=== PATIENT | female | born 1975 | race Caucasian/White ===

== ENCOUNTER 2022-06-24 09:49 | Observation (INO) ==
--- NOTE | 2022-06-24 10:33 | CT Scan Report ---
CT head/brain wo con CLINICAL HISTORY: 46 years-old Female with Stroke Alert. Acute strokelike symptoms TECHNIQUE: Multiple axial CT images of the head were obtained without contrast. A dose lowering tech nique was utilized adhering to the principles of ALARA. CT DOSE: 537.48 mGy.cm COMPARISON: None. FINDINGS: No acute intracranial hemorrhage, midline shift, intracranial mass, hydrocephalus, territorial ischem ia or abnormal extra-axial collection. Encephalomalacia is noted within the right frontal lobe on sienna ge 14 series 2 measuring 2.7 cm. The calvarium is intact. The paranasal sinuses, mastoid air cells, and middle ear cavities are clear . IMPRESSION: 1. No acute intracranial abnormality identified. 2. Encephalomalacia of the right frontal lobe. ACT 112: Negative or not required by law. The above report was generated using voice recognition software. It may contain grammatical, syntax o r spelling errors. Electronically signed by: eH Carranza M.D. 06/24/2022 10:30 AM
[2022-06-24 10:36] LABS: Hematocrit (blood only) 40.1 % (34.1-44.9); Hemoglobin 13.4 g/dl (12.0-16.0); Mean Corpuscular Hemoglobin 32.1 pg (25.0-34.0); Mean Corpuscular Hgb Conc 33.4 g/dL (32.0-36.0); Mean Corpuscular Volume 96.2 fL (80.0-100.0); Mean Platelet Volume 8.9 fL (9.4-12.3); Platelet Count 367 K/uL (130-400); RDW Coefficient of Variation 13.7 % (11.5-14.5); RDW Standard Deviation 48.9 fL (36.4-46.3); Red Blood Count 4.17 M/uL (3.93-5.22); White Blood Count 8.66 K/ul (4.8-10.8)
[2022-06-24 10:49] LABS: INR 0.9 (0.9-1.1); Partial Thromboplastin Ratio 0.9; Partial Thromboplastin Time 24.8 Seconds (21.0-31.0); Prothrombin Time 10.1 Seconds (9.0-12.0)
--- NOTE | 2022-06-24 11:09 | Emergency Department Note ---
Impression & Plan Muscle weakness of right arm, History of cerebrovascular accident, Vertebral artery stenosis, Pulmonary nodule ED Provider Note NAME: MARGAUX WARNER AGE: 46 SEX: F : 1975 ARRIVES VIA: Walk-In INFORMANT: Patient, ED PROVIDER(S): Adan Garcia MD Chief Complaint: Right upper extremity weakness HPI: Patient presents due to concern for inability to move the right upper extremity. The patient states that she was last known well around 11 PM on Saturday. The patient states her arm was "hanging" yesterday but cannot move it today at all. The patient is also complained of decreased sensation of the right lower extremity. No recent falls or trauma. The patient has been incarcerated at [facility] for the last 30 days. The patient does have a history of methamphetamine use but does not use an approximate 6 days. Patient does have a history of Crohn's. The patient also relates that she has a prior history of TIA and stroke but has not been on medications due to inability to afford or obtain her medications although she has returned to some of them. During her previous bouts of TIA and stroke the patient did have some difficulty with writing and may be some generalized weakness but no focal deficits. Patient denies any slurred speech or facial droop. ROS: See HPI for pertinent positives and negatives. A total of 10 systems were reviewed and otherwise negative. Past medical history: See below Surgical history: See below Social history: See below Physical Exam: GENERAL: NAD, wearing a mask, non-toxic. Wearing glasses, left upper and left lower extremity in handcuffs. EYE EXAM: Normal conjunctiva. PERRL, no anisocoria and EOM's grossly intact w/o pain. NECK: Supple, no nuchal rigidity, no adenopathy, non-tender. No signs of meningismus. FROM of the neck with good chin to chest and neck extension. No stridor. LUNGS: Clear to auscultation. Normal chest wall mechanics. HEART: NSR, no MRG. ABDOMEN: Abdomen soft, non-tender, normo-active bowel sounds, no masses, no rebound or guarding. BACK: No CVA TTP. SKIN: No rashes and no bruising. UPPER EXTREMITIES: Upper extremities are grossly normal. LOWER EXTREMITIES: Grossly normal, no edema. NEURO EXAM: A&O x3, cranial nerves II-XII grossly intact, normal speech, inability to move right upper extremity, decreased sensation throughout right upper extremity distal to the shoulder, good radial pulse. Good strength in the left upper and bilateral lower extremities. Differential diagnoses: Infection, dehydration, metabolic abnormality, hypo/hyperglycemia, electrolyte disturbance, anemia, hypoxia, cardiac sources, intracerebral event, toxicologic, neurologic, as well as other pathologies. Course: Patient was seen and evaluated the bedside. Full history physical exam was performed. EKG interpreted by me Normal sinus rhythm, rate of 79, normal intervals, normal axis, T wave version in V2 and V3. No prior EKGs for comparison. Imaging Studies: See Below Cardiac monitoring: An order was placed for continuous cardiac monitoring. The monitor shows a rate of 72 with sinus rhythm. MDM: Patient presents due to concern for right upper extremity weakness. The patient is well outside of any TNKase window. The patient is prior history of TIA and CVA. The patient does not have any ability to move the right upper extremity. Initial CT head shows right-sided frontal encephalomalacia. CTA of the head and neck were ordered. The patient had blood work completed which shows a normal white count H&H and platelet count kidney function is unremarkable with normal coags. EKG with no signs of obvious ischemia but no priors for comparison. The patient does have T wave versions anteriorly. CTA of the head and neck shows left vertebral artery stenosis of 70%. I did speak the on-call hospitalist Dr. Gutiérrez and the patient was admitted to the medicine service. MRI of the brain was ordered. Past Med/Surg History Medical History (Updated 06/24/22 @ 16:53 by Adan Garcia MD) Cerebrovascular accident Crohn disease CVA (cerebral vascular accident) Factor V deficiency History of stroke TIA (transient ischemic attack) Tobacco abuse Surgical History No pertinent past surgical history Social History Smoking Status: Former smoker Hx Alcohol Use: No Hx Substance Use: Yes Non-Prescribed Medications: Methamphetamines Preferred Language: Liberian Feels Safe at Home: Yes Allergies Allergies Allergy/AdvReac Type Severity Reaction Status Date / Time No Known Allergies Allergy Verified 06/24/22 15:55 Home Meds Home Medications Medication Instructions Recorded Confirmed albuterol sulfate 2.5 mg/3 mL 2.5 mg inhalation TID PRN 06/24/22 06/24/22 (0.083 %) solution for nebulization Shortness Of Breath aspirin 81 mg tablet,delayed 81 mg PO DAILY 06/24/22 06/24/22 release klmxnua-dputxuqngykxk-eowbergk 250 1 tab PO DAILY PRN Migraine 06/24/22 06/24/22 mg-250 mg-65 mg tablet (Excedrin Headache Migraine) docusate sodium 100 mg capsule 100 mg PO BID 06/24/22 06/24/22 (Colace) fluoxetine 20 mg tablet 20 mg PO DAILY 06/24/22 06/24/22 hydroxyzine HCl 50 mg tablet 50 mg PO HS PRN RESTLESSNESS/SLEEP 06/24/22 06/24/22 Results & Data (ED) Vital Signs Vital Signs - 24 hr 06/24/22 09:52 06/24/22 09:55 06/24/22 09:55 Temperature 36.7 C Temperature Source Temporal Artery Scan Pulse Rate 99 H 105 H Pulse Rate [Apical] Pulse Rate from SpO2 Sensor Pulse Rhythm Regular Pulse Strength Normal Respiratory Rate 18 16 Respiratory Effort / Characteristics Non-Labored Spontaneous Respiratory Depth Normal Respiratory Pattern Regular Blood Pressure 128/80 Blood Pressure [Left Arm] Blood Pressure Mean 96 Blood Pressure Mean [Left Arm] Blood Pressure Position Sitting Pulse Oximetry 98 99 Oxygen Delivery Method Room Air Room Air Room Air Sepsis Recent Fever Within 48 Hours No Sepsis New/Unexplained Change in Mental Status No Sepsis Action Taken by Nursing No Action Required 06/24/22 09:50 06/24/22 11:08 06/24/22 11:08 Temperature Temperature Source Pulse Rate 81 Pulse Rate [Apical] 108 H Pulse Rate from SpO2 Sensor 82 Pulse Rhythm Pulse Strength Respiratory Rate 16 14 Respiratory Effort / Characteristics Respiratory Depth Respiratory Pattern Blood Pressure 108/84 Blood Pressure [Left Arm] 108/84 Blood Pressure Mean 92 Blood Pressure Mean [Left Arm] 92 Blood Pressure Position Pulse Oximetry 99 98 Oxygen Delivery Method Sepsis Recent Fever Within 48 Hours Sepsis New/Unexplained Change in Mental Status Sepsis Action Taken by Nursing 06/24/22 11:30 06/24/22 11:30 06/24/22 13:00 Temperature Temperature Source Pulse Rate 95 H Pulse Rate [Apical] 91 H Pulse Rate from SpO2 Sensor 100 H Pulse Rhythm Pulse Strength Respiratory Rate 20 18 Respiratory Effort / Characteristics Respiratory Depth Respiratory Pattern Blood Pressure 135/83 Blood Pressure [Left Arm] 117/80 Blood Pressure Mean 100 Blood Pressure Mean [Left Arm] 92 Blood Pressure Position Pulse Oximetry 98 98 Oxygen Delivery Method Sepsis Recent Fever Within 48 Hours Sepsis New/Unexplained Change in Mental Status Sepsis Action Taken by [facility] Medications Current Medication List: was personally reviewed by me Laboratory Data Attestation: I reviewed the patient's lab results. Result diagrams: 06/24/22 10:00 06/24/22 10:00 Lab Results 06/24/22 06/24/22 06/24/22 Range/Units 10:00 10:00 10:00 WBC 8.66 (4.8-10.8) K/ul RBC 4.17 (3.93-5.22) M/uL Hgb 13.4 (12.0-16.0) g/dl Hct 40.1 (34.1-44.9) % MCV 96.2 (80.0-100.0) fL MCH 32.1 (25.0-34.0) pg MCHC 33.4 (32.0-36.0) g/dL RDW Std Deviation 48.9 H (36.4-46.3) fL RDW Coeff of Noreen 13.7 (11.5-14.5) % Plt Count 367 (130-400) K/uL MPV 8.9 L (9.4-12.3) fL PT 10.1 (9.0-12.0) Seconds INR 0.9 (0.9-1.1) APTT 24.8 (21.0-31.0) Seconds PTT Ratio 0.9 Sodium 138 (136-145) mmol/L Potassium 4.2 (3.5-5.1) mmol/L Chloride 105 (98-107) mmol/L Carbon Dioxide 28 (21-32) mmol/L Anion Gap 5 (3-11) BUN 14 (6-23) mg/dl Creatinine 0.73 (0.6-1.2) mg/dl Est Cr Clr Drug Dosing 82.8 ml/min Est GFR ( Amer) 115.3 ml/min Est GFR (Non-Af Amer) 99.5 ml/min BUN/Creatinine Ratio 19.2 (10-20) Glucose 98 (70-99(Fasting)) mg/dl Calcium 9.2 (8.5-10.1) mg/dl Magnesium 1.9 (1.7-2.4) mg/dl Total Bilirubin 0.4 (0.2-1.0) mg/dl AST 37 (13-39) U/L ALT 36 (7-52) U/L Alkaline Phosphatase 94 (34-104) U/L Total Protein 6.8 (6.0-8.3) gm/dl Albumin 3.6 (3.4-5.0) gm/dl Globulin 3.2 (2.5-4.0) gm/dl Albumin/Globulin Ratio 1.1 (0.9-2) SARS-CoV-2, RNA, NAAT (NEGATIVE) 06/24/22 Range/Units 11:50 WBC (4.8-10.8) K/ul RBC (3.93-5.22) M/uL Hgb (12.0-16.0) g/dl Hct (34.1-44.9) % MCV (80.0-100.0) fL MCH (25.0-34.0) pg MCHC (32.0-36.0) g/dL RDW Std Deviation (36.4-46.3) fL RDW Coeff of Noreen (11.5-14.5) % Plt Count (130-400) K/uL MPV (9.4-12.3) fL PT (9.0-12.0) Seconds INR (0.9-1.1) APTT (21.0-31.0) Seconds PTT Ratio Sodium (136-145) mmol/L Potassium (3.5-5.1) mmol/L Chloride (98-107) mmol/L Carbon Dioxide (21-32) mmol/L Anion Gap (3-11) BUN (6-23) mg/dl Creatinine (0.6-1.2) mg/dl Est Cr Clr Drug Dosing ml/min Est GFR ( Amer) ml/min Est GFR (Non-Af Amer) ml/min BUN/Creatinine Ratio (10-20) Glucose (70-99(Fasting)) mg/dl Calcium (8.5-10.1) mg/dl Magnesium (1.7-2.4) mg/dl Total Bilirubin (0.2-1.0) mg/dl AST (13-39) U/L ALT (7-52) U/L Alkaline Phosphatase (34-104) U/L Total Protein (6.0-8.3) gm/dl Albumin (3.4-5.0) gm/dl Globulin (2.5-4.0) gm/dl Albumin/Globulin Ratio (0.9-2) SARS-CoV-2, RNA, NAAT NEGATIVE (NEGATIVE) Administered Medications Discontinued Medications Aspirin (Aspirin 325 Mg Ectab) 325 mg PO ONE ONE Stop: 06/24/22 15:31 Last Admin: 06/24/22 15:39 Dose: 325 mg Documented By: EDMUND Atorvastatin Calcium (Atorvastatin 40 Mg Tab) 40 mg PO ONE ONE Stop: 06/24/22 15:31 Last Admin: 06/24/22 15:39 Dose: 40 mg Documented By: EDMUND Sodium Chloride (Nss 1000ml) 1,000 mls @ 999 mls/hr IV .Q1H1M ONE Stop: 06/24/22 12:35 Last Infusion: 06/24/22 13:26 Dose: 0 mls/hr Documented By: Admin: 06/24/22 11:45 Dose: 999 mls/hr Documented By: EDMUND Ioversol (Optiray 300 500ml) 110 ml IV ONCE ONE Stop: 06/24/22 12:05 Last Admin: 06/24/22 12:04 Dose: 110 ml Documented By: JENNY Imaging Data Radiologist's Impression: Head CT 06/24/22 09:55 CT head/brain wo con CLINICAL HISTORY: 46 years-old Female with Stroke Alert. Acute strokelike symptoms TECHNIQUE: Multiple axial CT images of the head were obtained without contrast. A dose lowering technique was utilized adhering to the principles of ALARA. CT DOSE: 537.48 mGy.cm COMPARISON: None. FINDINGS: No acute intracranial hemorrhage, midline shift, intracranial mass, hydrocephalus, territorial ischemia or abnormal extra-axial collection. Encephalomalacia is noted within the right frontal lobe on image 14 series 2 measuring 2.7 cm. The calvarium is intact. The paranasal sinuses, mastoid air cells, and middle ear cavities are clear. IMPRESSION: 1. No acute intracranial abnormality identified. 2. Encephalomalacia of the right frontal lobe. ACT 112: Negative or not required by law. The above report was generated using voice recognition software. It may contain grammatical, syntax or spelling errors. Electronically signed by: He Carranza M.D. 06/24/2022 10:30 AM Head CTA 06/24/22 11:35 CT angio neck with con, CT angio head w con CLINICAL HISTORY: 46 years-old Female with can't more RUE. Acute strokelike symptoms COMPARISON STUDY: Head CT of same day TECHNIQUE: Following the IV administration of 110 mL of Optiray, CT angiogram of the head and neck was performed from the aortic arch to the skull apex. Images are reviewed in the axial, sagittal, and coronal planes. 3-D MIPS images are created and assessed. IV contrast was administered without complication. All measurements were calculated based on NASCET criteria. A dose lowering technique was utilized adhering to the principles of ALARA. CT DOSE: 496.71 mGy.cm FINDINGS: Three-vessel morphology of the thoracic aortic arch. There is patency of the innominate and imaged subclavian arteries. The common and internal carotid arteries are widely patent. The middle and anterior cerebral arteries are widely patent. The vertebral arteries are codominant. 70% stenosis of the V2 segment left vertebral artery at the level of C3-C4 secondary to degenerative spurring of the cervical spine. Less than 50% stenosis involves the V2 segment the level of C5-C6. The basilar and posterior cerebral arteries are patent bilaterally. Cerebral venous sinuses are patent. There is no abnormal intracranial enhancement. Partially imaged 5 mm subpleural nodular opacity of the superior segment right lower lobe on image 1. Mild subpleural bleb formation of the lung apices. No pneumothorax. Unremarkable soft tissues. No acute fracture. Moderate to severe degenerative changes of the cervical spine. IMPRESSION: 1. No aneurysm, dissection or arterial occlusion. 2. 70% stenosis of the V2 segment left vertebral artery secondary to degenerative spurring of the cervical spine. 3. Moderate to severe degenerative changes of the cervical spine. 4. Partially imaged 5 mm subpleural solid nodule of the superior segment right lower lobe. ACT 112: Negative or not required by law. Please refer to below summary of Fleischner criteria recommendations for follow- up of incidental CT nodules (Janet Ward, Guidelines for management of small pulmonary nodules detected on CT scans: A statement from the Fleischner Society, Radiology 237: [phone].) SOLID NODULES Solitary nodule size: <6 mm * Low risk patients: no follow-up needed * high risk patients: optional CT at 12 months Note: newly detected indeterminate nodule in persons 35 years of age or older. * Low risk patients: minimal or absent history of smoking and/or other known risk factors * high risk patients: history of smoking or of other known risk factors (e.g. first degree relative with lung cancer, or exposure to asbestos, radon, uranium) * if a nodule up to 8 mm is partly solid or is ground glass further follow-up is required after 24 months to exclude possible slow growing adenocarcinoma (AMANDA) The above report was generated using voice recognition software. It may contain grammatical, syntax or spelling errors. Electronically signed by: He Carranza M.D. 06/24/2022 12:56 PM Neck CTA 06/24/22 11:35 CT angio neck with con, CT angio head w con CLINICAL HISTORY: 46 years-old Female with can't more RUE. Acute strokelike symptoms COMPARISON STUDY: Head CT of same day TECHNIQUE: Following the IV administration of 110 mL of Optiray, CT angiogram of the head and neck was performed from the aortic arch to the skull apex. Images are reviewed in the axial, sagittal, and coronal planes. 3-D MIPS images are created and assessed. IV contrast was administered without complication. All measurements were calculated based on NASCET criteria. A dose lowering technique was utilized adhering to the principles of ALARA. CT DOSE: 496.71 mGy.cm FINDINGS: Three-vessel morphology of the thoracic aortic arch. There is patency of the innominate and imaged subclavian arteries. The common and internal carotid arteries are widely patent. The middle and anterior cerebral arteries are widely patent. The vertebral arteries are codominant. 70% stenosis of the V2 segment left vertebral artery at the level of C3-C4 secondary to degenerative spurring of the cervical spine. Less than 50% stenosis involves the V2 segment the level of C5-C6. The basilar and posterior cerebral arteries are patent bilaterally. Cerebral venous sinuses are patent. There is no abnormal intracranial enhancemen t. Partially imaged 5 mm subpleural nodular opacity of the superior segment right lower lobe on image 1. Mild subpleural bleb formation of the lung apices. No pneumothorax. Unremarkable soft tissues. No acute fracture. Moderate to severe degenerative changes of the cervical spine. IMPRESSION: 1. No aneurysm, dissection or arterial occlusion. 2. 70% stenosis of the V2 segment left vertebral artery secondary to degenerativ e spurring of the cervical spine. 3. Moderate to severe degenerative changes of the cervical spine. 4. Partially imaged 5 mm subpleural solid nodule of the superior segment right lower lobe. ACT 112: Negative or not required by law. Please refer to below summary of Fleischner criteria recommendations for follow- up of incidental CT nodules (Janet Ward, Guidelines for management of small pulmonary nodules detected on CT scans: A statement from the Fleischner Society, Radiology 237: [phone].) SOLID NODULES Solitary nodule size: <6 mm * Low risk patients: no follow-up needed * high risk patients: optional CT at 12 months Note: newly detected indeterminate nodule in persons 35 years of age or older. * Low risk patients: minimal or absent history of smoking and/or other known risk factors * high risk patients: history of smoking or of other known risk factors (e.g. first degree relative with lung cancer, or exposure to asbestos, radon, uranium) * if a nodule up to 8 mm is partly solid or is ground glass further follow-up is required after 24 months to exclude possible slow growing adenocarcinoma (AMANDA) The above report was generated using voice recognition software. It may contain grammatical, syntax or spelling errors. Electronically signed by: eH Carranza M.D. 06/24/2022 12:56 PM Shoulder X-Ray 06/24/22 11:36 XR shoulder RT min 2V routine HISTORY: 46 years-old Female can't move RUE acute right shoulder pain COMPARISON: None TECHNIQUE: 3 views of the right shoulder FINDINGS: Mild osteoarthritis of the AC joint. No significant osteoarthritis of the glenohumeral joint. There is no acute fracture, dislocation or opaque foreign body. 1.2 cm nodular density of the right lung base may be secondary to summation versus pulmonary nodule. IMPRESSION: 1. No acute fracture or dislocation. 2. Summation density versus pulmonary nodule of the right lung base, 1.2 cm. ACT 112: Negative or not required by law. The above report was generated using voice recognition software. It may contain grammatical, syntax or spelling errors. Electronically signed by: He Carranza M.D. 06/24/2022 11:52 AM Brain MRI 06/24/22 13:36 MR brain wo con HISTORY: 46 years-old Female RUE weakness acute strokelike symptoms COMPARISON: CTA had and neck of same day TECHNIQUE: Multiplanar multisequence MRI of the brain was obtained without the use of IV contrast. FINDINGS: Brass Roller localizer images demonstrate no gross extracranial abnormality. No restricted diffusion to suggest acute or subacute infarct. Structures are unremarkable. Degenerative changes of the cervical spine. Decreased T1 signal of the C4 vertebral body is indeterminate. Mild C3-C4 central canal stenosis. No acute intracranial hemorrhage, midline shift, abnormal extra axial collection, hydrocephalus or intracranial mass. No patho logic blooming artifact on the T2 star series. Encephalomalacia and gliosis within the right frontal lobe redemonstrated. Mild nonspecific increased T2/FLAIR signal within the anterior frontal lobe periventricular white matter. Cerebral venous sinuses and major arterial flow voids appear patent. The skull, orbits and soft tissues are unremarkable. IMPRESSION: 1. No acute intracranial abnormality. No acute or subacute infarct. 2. Encephalomalacia and gliosis of the right frontal lobe from a chronic insult. ACT 112: Negative or not required by law. The above report was generated using voice recognition software. It may contain grammatical, syntax or spelling errors. Electronically signed by: He Carranza M.D. 06/24/2022 3:07 PM Discharge Plan Visit Data Chief Complaint: TIA Symptoms Stated Complaint: POSSIBLE TIA ED Provider: Adan Garcia Discharge Problem: Muscle weakness of right arm, History of cerebrovascular accident, Vertebral artery stenosis, Pulmonary nodule Patient Disposition: Admitted As Inpatient Discharge Instructions Interventions: ED Discharge Assessment Last Done: 06/24/22 15:58
[2022-06-24 11:26] LABS: Albumin Globulin Ratio 1.1 (0.9-2); Albumin Level 3.6 gm/dl (3.4-5.0); BUN Creatinine Ratio 19.2 (10-20); Bilirubin,Total 0.4 mg/dl (0.2-1.0); Calcium 9.2 mg/dl (8.5-10.1); Creatinine Clr Calc Pharmacy 82.8 ml/min; Est GFR (African American) 115.3 ml/min; Est GFR (Non-African American) 99.5 ml/min; Globulin 3.2 gm/dl (2.5-4.0); Magnesium 1.9 mg/dl (1.7-2.4); Potassium 4.2 mmol/L (3.5-5.1); Total Protein 6.8 gm/dl (6.0-8.3)
[2022-06-24] MEDS ORDERED: SODIUM CHLORIDE 0.9% 1000ML 1,000 ML IV ONE (11:35)
--- NOTE | 2022-06-24 11:53 | XRay Report ---
XR shoulder RT min 2V routine HISTORY: 46 years-old Female can't move RUE acute right shoulder pain COMPARISON: None TECHNIQUE: 3 views of the right shoulder FINDINGS: Mild osteoarthritis of the AC joint. No significant osteoarthritis of the glenohumeral joint. There i s no acute fracture, dislocation or opaque foreign body. 1.2 cm nodular density of the right lung bas e may be secondary to summation versus pulmonary nodule. IMPRESSION: 1. No acute fracture or dislocation. 2. Summation density versus pulmonary nodule of the right lung base, 1.2 cm. ACT 112: Negative or not required by law. The above report was generated using voice recognition software. It may contain grammatical, syntax o r spelling errors. Electronically signed by: He Carranza M.D. 06/24/2022 11:52 AM
[2022-06-24] MEDS ORDERED: OPTIRAY 300 500mL IV ONE (12:04)
--- NOTE | 2022-06-24 12:58 | CT Scan Report ---
CT angio neck with con, CT angio head w con CLINICAL HISTORY: 46 years-old Female with can't more RUE. Acute strokelike symptoms COMPARISON STUDY: Head CT of same day TECHNIQUE: Following the IV administration of 110 mL of Optiray, CT angiogram of the head and neck wa s performed from the aortic arch to the skull apex. Images are reviewed in the axial, sagittal, and c oronal planes. 3-D MIPS images are created and assessed. IV contrast was administered without complic ation. All measurements were calculated based on NASCET criteria. A dose lowering technique was util ized adhering to the principles of ALARA. CT DOSE: 496.71 mGy.cm FINDINGS: Three-vessel morphology of the thoracic aortic arch. There is patency of the innominate and imaged flanagan bclavian arteries. The common and internal carotid arteries are widely patent. The middle and anterio r cerebral arteries are widely patent. The vertebral arteries are codominant. 70% stenosis of the V2 segment left vertebral artery at the level of C3-C4 secondary to degenerative spurring of the cervica l spine. Less than 50% stenosis involves the V2 segment the level of C5-C6. The basilar and posterior cerebral arteries are patent bilaterally. Cerebral venous sinuses are patent. There is no abnormal i ntracranial enhancement. Partially imaged 5 mm subpleural nodular opacity of the superior segment right lower lobe on image 1. Mild subpleural bleb formation of the lung apices. No pneumothorax. Unremarkable soft tissues. No ac [place] fracture. Moderate to severe degenerative changes of the cervical spine. IMPRESSION: 1. No aneurysm, dissection or arterial occlusion. 2. 70% stenosis of the V2 segment left vertebral artery secondary to degenerative spurring of the cer vical spine. 3. Moderate to severe degenerative changes of the cervical spine. 4. Partially imaged 5 mm subpleural solid nodule of the superior segment right lower lobe. ACT 112: Negative or not required by law. Please refer to below summary of Fleischner criteria recommendations for follow-up of incidental CT n odules (Janet Ward, Guidelines for management of small pulmonary nodules detected on CT scans: A sta tement from the Fleischner Society, Radiology 237: [id number].) SOLID NODULES Solitary nodule size: <6 mm * Low risk patients: no follow-up needed * high risk patients: optional CT at 12 months Note: newly detected indeterminate nodule in persons 35 years of age or older. * Low risk patients: minimal or absent history of smoking and/or other known risk factors * high risk patients: history of smoking or of other known risk factors (e.g. first degree relative with lung cancer, or exposure to asbestos, radon, uranium) * if a nodule up to 8 mm is partly solid or is ground glass further follow-up is required after 24 m onths to exclude possible slow growing adenocarcinoma (AMANDA) The above report was generated using voice recognition software. It may contain grammatical, syntax o r spelling errors. Electronically signed by: He Carranza M.D. 06/24/2022 12:56 PM
--- NOTE | 2022-06-24 15:09 | Magnetic Resonance Report ---
MR brain wo con HISTORY: 46 years-old Female RUE weakness acute strokelike symptoms COMPARISON: CTA had and neck of same day TECHNIQUE: Multiplanar multisequence MRI of the brain was obtained without the use of IV contrast. FINDINGS: Packing Checker localizer images demonstrate no gross extracranial abnormality. No restricted diffusion to sugg est acute or subacute infarct. Structures are unremarkable. Degenerative changes of the cervical spine. Decreased T1 signal of the C 4 vertebral body is indeterminate. Mild C3-C4 central canal stenosis. No acute intracranial hemorrhag e, midline shift, abnormal extra axial collection, hydrocephalus or intracranial mass. No pathologic blooming artifact on the T2 star series. Encephalomalacia and gliosis within the right frontal lobe r edemonstrated. Mild nonspecific increased T2/FLAIR signal within the anterior frontal lobe periventri cular white matter. Cerebral venous sinuses and major arterial flow voids appear patent. The skull, orbits and soft tissu es are unremarkable. IMPRESSION: 1. No acute intracranial abnormality. No acute or subacute infarct. 2. Encephalomalacia and gliosis of the right frontal lobe from a chronic insult. ACT 112: Negative or not required by law. The above report was generated using voice recognition software. It may contain grammatical, syntax o r spelling errors. Electronically signed by: He Carranza M.D. 06/24/2022 3:07 PM
--- NOTE | 2022-06-24 15:11 | History & Physical Report ---
Date of Service June 24, 2022 Assessment & Plan (1) Cerebrovascular accident: Plan: Patient presented with right upper extremity weakness. CT angio of the head and neck did not show any aneurysm, dissection or arterial occlusion 1. No aneurysm, dissection or arterial occlusion. 2. 70% stenosis of the V2 segment left vertebral artery secondary to degenerative spurring of the cervical spine. 3. Moderate to severe degenerative changes of the cervical spine. 4. Partially imaged 5 mm subpleural solid nodule of the superior segment right lower lobe. Admit to telemetry Start aspirin, Lipitor Check fasting lipid profile Proceed with the MRI of the brain Echocardiogram (2) Factor V deficiency: Plan: Considering past medical history of factor V Leiden deficiency, patient needs to be evaluated and if positive, be started on lifelong anticoagulation. (3) Tobacco abuse: Plan: Patient has a long history of smoking Counseling was provided (4) Lung nodule: Plan: Considering long history of smoking, partially imaged 5 mm subpleural solid nodule of the superior segment of the right lower lobe needs to be evaluated for malignancy in the future History of Present Illness Chief Complaint: Right upper extremity weakness Primary Care Provider: [facility] Patient is a 46-year-old female with past medical history of factor V Leiden mutation on no anticoagulation, history of frontal stroke in the past on no antiplatelet, homeless and currently in state presented with brought to the hospital for right upper extremity weakness. According to the patient, it started yesterday morning. It was associated with decreased sensation. She is not able to move or lift her right arm from shoulder and below. She was not brought to the hospital yesterday. She continued to have the weakness and today was brought to the hospital to be evaluated for stroke. She also claims that she had a previous history of TIA/stroke which was associated with slurred speech. She has a diagnosis of factor V Leiden deficiency and has not been on any anticoagulation at least for the last 5 years. She claims that she is diagnosed with a Crohn's disease at the facility due to abdominal pain and is a started on some medication which she does not remember the name. She denies any blurred vision, slurred speech, nausea, vomiting, chest pain or shortness of breath, abdominal pain, other urinary or GI symptoms. She ambulates and walks with no difficulty. Allergies Allergy/AdvReac Type Severity Reaction Status Date / Time No Known Allergies Allergy Unverified 06/24/22 15:02 Past Med/Surg History Medical History (Updated 06/24/22 @ 15:09 by Caitlyn Gutiérrez MD) Cerebrovascular accident Crohn disease CVA (cerebral vascular accident) Factor V deficiency History of stroke TIA (transient ischemic attack) Tobacco abuse Surgical History No pertinent past surgical history Social History Smoking Status: Former smoker Hx Alcohol Use: No Hx Substance Use: Yes Non-Prescribed Medications: Methamphetamines Preferred Language: Luxembourgish Feels Safe at Home: Yes Review of Systems Review of Systems: Review of system as above, otherwise negative Physical Exam Constitutional: WD/WN, vitals as above Eyes: PERRL, conjunctivae normal, anicteric sclerae ENMT: external ear and nose normal, oropharynx normal Neck: trachea midline, no thyromegaly Respiratory: normal respiratory effort, lungs clear to auscultation Cardiovascular: RRR, no murmur, no edema Gastrointestinal (Abdomen): normal bowel sounds, soft, nontender, no hepatosplenomegaly Musculoskeletal: Right upper extremity weakness Neurologic: Speech / Cognition: + abnormal speech Motor/Sensory: + abnormal movement (Patient has no significant movement of right upper extremity. Shoul lydia shr) and + sensory deficit (Decreased sensation of right upper extremity) Cranial Nerves: sense of smell intact, PERRL, EOM intact bilaterally, normal hearing and able to rotate head bilaterally Psychiatric: Patient is withdrawn Results & Data Results & Data ([facility]) Vital Signs (Past 12 Hours) Vital Signs Temp Pulse Pulse Resp BP BP Pulse Ox 06/24/22 13:00 91 H 18 117/80 98 06/24/22 11:30 95 H 20 98 06/24/22 11:30 135/83 06/24/22 11:08 81 14 98 06/24/22 11:08 108/84 06/24/22 09:50 108 H 16 108/84 99 06/24/22 09:55 105 H 16 99 06/24/22 09:55 06/24/22 09:52 36.7 C 99 H 18 128/80 98 O2 Del Method 06/24/22 13:00 06/24/22 11:30 06/24/22 11:30 06/24/22 11:08 06/24/22 11:08 06/24/22 09:50 06/24/22 09:55 Room Air 06/24/22 09:55 Room Air 06/24/22 09:52 Room Air Code Status & VTE Plan Code Status Full code VTE Prophylaxis Plan VTE Prophylaxis will be ordered: Yes
[2022-06-24] MEDS ORDERED: ASPIRIN 325 MG ECTAB PO ONE (15:30)
[2022-06-24] MEDS ORDERED: ATORVASTATIN 40 MG TAB PO ONE (15:30)
[2022-06-24] MEDS ORDERED: MAGNESIUM HYDROXIDE SUSP 30 ML UDC PO PRN (16:51)
[2022-06-24] MEDS ORDERED: ALBUTEROL 0.083% NEBU SOLN 3 ML VIAL INH PRN (16:51)
[2022-06-24] MEDS ORDERED: ONDANSETRON INJ 2 MG/ML 2 ML VIAL IV PRN (16:51)
[2022-06-24] MEDS ORDERED: ALUMINUM/MAGNESIUM SUSP 30 ML UDC PO PRN (16:51)
[2022-06-24] MEDS ORDERED: POLYETHYLENE (MIRALAX) 17 GM PACK PO PRN (16:51)
[2022-06-24] MEDS ORDERED: hydrOXYzine HCl 25 MG TAB PO PRN (16:51)
[2022-06-24 18:10] LABS: Chol HDL Ratio 3.7 (0-5)
[2022-06-24] MEDS: DOCUSATE SODIUM 100 MG CAP PO SCH (22:13)
--- NOTE | 2022-06-25 05:54 | Electrocardiogram Report ---
Test Reason : Blood Pressure : / mmHG Vent. Rate : 079 BPM Atrial Rate : 079 BPM P-R Int : 114 ms QRS Dur : 060 ms QT Int : 396 ms P-R-T Axes : 078 062 057 degrees QTc Int : 454 ms Poor data quality, interpretation may be adversely affected Normal sinus rhythm Low voltage QRS Nonspecific T wave abnormality No previous ECGs available Confirmed by Dandre Carpenter ([id number]) on 06/25/2022 5:54:22 AM Referred By: [facility] Confirmed By:Dandre Carpenter
[2022-06-25] MEDS ORDERED: ASPIRIN 325 MG ECTAB PO SCH (09:00)
[2022-06-25] MEDS: DOCUSATE SODIUM 100 MG CAP PO SCH ×2 (09:56→21:00)
[2022-06-25] MEDS: ASPIRIN 81 MG ECTAB PO SCH (09:56)
[2022-06-25] MEDS: ATORVASTATIN 40 MG TAB PO SCH (09:56)
[2022-06-25] MEDS: FLUoxetine HCL 20 MG CAP PO SCH (09:57)
[2022-06-25 10:02] LABS: Hematocrit (blood only) 40.1 % (34.1-44.9); Hemoglobin 13.8 g/dl (12.0-16.0); Mean Corpuscular Hemoglobin 32.2 pg (25.0-34.0); Mean Corpuscular Hgb Conc 34.4 g/dL (32.0-36.0); Mean Corpuscular Volume 93.5 fL (80.0-100.0); Mean Platelet Volume 8.6 fL (9.4-12.3); Platelet Count 335 K/uL (130-400); RDW Coefficient of Variation 13.6 % (11.5-14.5); Red Blood Count 4.29 M/uL (3.93-5.22)
[2022-06-25 10:29] LABS: Albumin Globulin Ratio 1.1 (0.9-2); Albumin Level 3.5 gm/dl (3.4-5.0); BUN Creatinine Ratio 21.2 (10-20); Bilirubin,Total 0.4 mg/dl (0.2-1.0); Calcium 8.7 mg/dl (8.5-10.1); Creatinine Clr Calc Pharmacy 89.7 ml/min; Est GFR (African American) 123.6 ml/min; Est GFR (Non-African American) 106.7 ml/min; Globulin 3.2 gm/dl (2.5-4.0); Magnesium 1.9 mg/dl (1.7-2.4); Potassium 4.1 mmol/L (3.5-5.1); Total Protein 6.7 gm/dl (6.0-8.3)
--- NOTE | 2022-06-25 12:19 | Hospitalist Progress Note ---
Date of Service June 25, 2022 Assessment & Plan (1) Cerebrovascular accident: Plan: Per admitting service notes with addendum: Right upper extremity weakness History of factor V [place] deficiency, history of previous frontal CVA Patient not on aspirin, statin or anticoagulation Has not followed up with physicians for the past few years Patient presented with right upper extremity weakness. CT angio of the head and neck did not show any aneurysm, dissection or arterial occlusion 1. No aneurysm, dissection or arterial occlusion. 2. 70% stenosis of the V2 segment left vertebral artery secondary to degenerative spurring of the cervical spine. 3. Moderate to severe degenerative changes of the cervical spine. 4. Partially imaged 5 mm subpleural solid nodule of the superior segment right lower lobe. Brain MRI: 1. No acute intracranial abnormality. No acute or subacute infarct. 2. Encephalomalacia and gliosis of the right frontal lobe from a chronic insult. Echocardiogram: Pending Continue aspirin 81 mg p.o. daily Lipitor 40 mg p.o. daily Neurology service consulted (2) Factor V deficiency: Plan: Considering past medical history of factor V Leiden deficiency, patient needs to be evaluated and if positive, be started on lifelong anticoagulation. Neurology service consulted (3) Tobacco abuse: Plan: Patient has a long history of smoking Counseling was provided (4) Lung nodule: Plan: Considering long history of smoking, partially imaged 5 mm subpleural solid nodule of the superior segment of the right lower lobe needs to be evaluated for malignancy in the future Will order CT chest for better characterization of the nodule History of Crohn's disease No GI symptoms Needs to follow-up with GI as an outpatient Plan [facility] once cleared by neurology service Admission and Anticipated Discharge Date Admission Date: June 24, 2022 Subjective Follow-up for right upper extremity weakness, etc. Seen resting in bed, comfortable, not in distress, in good spirits Correctional officers at the bedside Patient states right upper extremity weakness is about the same as yesterday and 2 days ago No other focal weakness or numbness Denies chest pain, shortness of breath, palpitations, dizziness No abdominal pain, nausea vomiting No other symptoms Review of Systems Review of Systems: all noted and negative except for above Physical Exam Physical Exam: General- oriented x 3, not in distress, speaks in sentences with no effort or accessory muscle use Eyes- anicteric Neck- no JVD Lungs- clear BS bilaterally, no rales/wheezes Heart- normal rate, regular rhythm; no murmurs Abdomen- normal bowel sounds, nondistended, soft, nontender Extremities- no pretibial edema, no calf tenderness Neuro- alert, oriented x 3; cranial 2-12 grossly intact Motor strength 1 out of 5 on the right upper extremity otherwise 5 of over 5 in all other extremities Sensation 100% all extremities Skin- warm & dry Results & Data Results & Data ([facility]) Vital Signs (Past 12 Hours) Vital Signs Temp Pulse Pulse Resp BP Pulse Ox O2 Del Method 06/25/22 07:54 36.8 C 80 18 111/75 96 06/25/22 07:36 93 H 06/25/22 04:39 36.6 C 83 18 115/75 95 Room Air all noted and reviewed including below
[2022-06-25] MEDS: ACETAMINOPHEN 325 MG TAB PO PRN ×2 (12:39→18:39)
--- NOTE | 2022-06-25 13:23 | CT Scan Report ---
CT chest diagnostic wo con CT DOSE: 218.13 mGycm HISTORY: Follow-up pulmonary nodule TECHNIQUE: Multiaxial CT images of the chest were performed without contrast. A dose lowering techni que was utilized adhering to the principles of ALARA. COMPARISON: CTA neck 06/24/2022. FINDINGS: Stable 5 mm subpleural nodule within the superior segment of the right lower lobe on image 99. No pneumothorax. There are few small blebs within the lung apices. There is a 6 mm nodule within the base of the left lower lobe on image 217. There is a 4 mm nodule within the left lower lobe on im age 207. There is a 5 mm nodule within the left lower lobe on image 191 and an 8 mm nodule within the right middle lobe image 190. These demonstrate faint groundglass halos. These are indeterminate but could represent areas of inflammatory/infectious change. A cluster of nodular/tubular foci within the base of the right lower lobe best seen on images 202 through 211 consistent with a pulmonary AVM. Th leah measure a total size of approximately 15 mm. No focal lung consolidations identified. The central airways are patent. No suspicious lytic are blastic osseous lesions. No mediastinal or hilar lymphad enopathy. The heart is normal in size. Normal esophagus. The visualized liver, spleen, and adrenal gl ands are unremarkable. Prior cholecystectomy. Normal caliber thoracic aorta. No pleural or pericardia l effusions. No suspicious lytic or blastic osseous lesions. IMPRESSION: 1. A few scattered subcentimeter pulmonary nodules as described above some which demonstrate faint gr oundglass halos and could represent inflammatory/infectious change. [address] follow-up recomm ended to evaluate for stability/resolution of these nodules. Dominant nodule within the right middle lobe measures 8 mm. 2. Right lower lobe pulmonary AVM as described above. ACT 112: Positive. There are findings on this exam that require communication between the performing entity and the patient following Patient Test Result Information Act ([place] Act 112) guidelines. Electronically signed by: Smith Leroy M.D. 06/25/2022 1:22 PM
--- NOTE | 2022-06-25 14:39 | XCELERA ---
[id number]
--- NOTE | 2022-06-25 14:57 | Neurology Consultation ---
Date of Consultation June 25, 2022 Assessment & Plan (1) Right arm weakness: Impression: Reportedly, the patient woke up with whole right arm weakness, paresthesia and numbness, Saturday morning. She denies any prior trauma, neck pain, shoulder pain, or additional neurological symptoms. Brain MRI was neg ative for cerebrovascular accident or other acute intracranial pathology. There is a concern of poor afforded during examination. However, we need to rule out cervical myelopathy and brachial plexopathy. Based on whole arm weakness and numbness, without any arm and shoulder pain, brachial plexopathy is less likely. Without neck pain, and additional neurological symptoms, cervical myelopathy an d radiculopathy are unlikely. Acute cerebrovascular accident is already ruled out. Plan/recommendations: Cervical spine and the right brachial plexus MRI with and without contrast. The patient will need EMG and nerve conduction study at neurology clinic. Physical therapy and Occupational Therapy consultations. Further recommendations are based on the recommended MRI findings. If cervical spine in brachial plexus MRI shows no pathology to explain symptoms, the patient can be discharged. Follow-up with neurology clinic. (2) History of cerebrovascular accident: Impression: The patient reports having stroke, probably in 2010. She used to be on anticoagulation however stopped using this treatment several years ago, because of financial difficulty. Plan: Hypercoagulable state work-up. If labs confirm hypercoagulable state, including factor V Leyden mutation, then the patient will need to be on anticoagulation. We should keep patient on aspirin 81 mg daily, and Lipitor based on having history of coronary artery disease and cerebrovascular accident. Goal LDL level is lower than 70. Adjust Lipitor dosage as needed. (3) Vertebral artery stenosis: Impression: Vertebral artery stenosis is reported, around 70%. There is no related neurological symptoms at this time. This is considered secondary to cervical spine spur. Plan: We will keep the patient on aspirin and Lipitor. Follow-up imaging in a year, earlier as needed. (4) Pulmonary nodule: (5) Tobacco abuse: Impression: The patient is a tobacco user. Plan: Based on coronary and cerebrovascular history, cessation of smoking is strongly recommended. 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 We do not have documents regarding prior work-up. Plan: Hypercoagulable state work-up. If labs confirms hypercoagulable state, including factor V mutation/deficiency, then the patient will need to be started on anticoagulation. Plan Thank you for the consultation. History of Present Illness Reason for Consultation: Right arm weakness and numbness. Requesting Physician: Terry Cote MD Attending Physician: Terry Cote MD History of Present Illness The patient is a 46-year-old female, who was [facility] emergency department yesterday, after the patient reported sudden onset right upper extremity weakness and numbness. Apparently, the patient woke up Saturday morning, with right arm weakness and numbness, without shoulder pain, neck pain, headache, or any other additional neurological symptoms. She denied having any unusual physical activity, trauma, sleeping in the wrong position, or similar symptoms in the past. Apparently, the patient has diagnosis of factor V Leiden mutation, and used to be on anticoagulation, but stopped using anticoagulation several years ago because of financial difficulties. 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 In emergency department, CT angiogram of head and neck showed vertebral artery stenosis from adjacent bony spur. Otherwise, there was no hemodynamically significant stenosis or occlusion. Brain MRI showed old, right frontal encephalomalacia, but no acute intracranial pathology. The patient reports some improvement of strength in right upper extremity. She has no diagnosis of diabetes mellitus, peripheral neuropathy, head and neck trauma, or recent infectious disorder. She also denies any sick contact, or insect bite. I have reviewed the patient's chart including imaging studies and visualized them personally. I have discussed the case with the patient and answer her questions in detail. Allergies Allergy/AdvReac Type Severity Reaction Status Date / Time No Known Allergies Allergy Verified 06/24/22 15:55 Home Medications Medication Instructions Recorded Confirmed Type albuterol sulfate 2.5 mg/3 mL 2.5 mg inhalation TID PRN 06/24/22 06/24/22 History (0.083 %) solution for nebulization Shortness Of Breath aspirin 81 mg tablet,delayed 81 mg PO DAILY 06/24/22 06/24/22 History release hdyavez-djidgbrwuzwku-nyprphol 250 1 tab PO DAILY PRN Migraine 06/24/22 06/24/22 History mg-250 mg-65 mg tablet (Excedrin Headache Migraine) docusate sodium 100 mg capsule 100 mg PO BID 06/24/22 06/24/22 History (Colace) fluoxetine 20 mg tablet 20 mg PO DAILY 06/24/22 06/24/22 History hydroxyzine HCl 50 mg tablet 50 mg PO HS PRN RESTLESSNESS/SLEEP 06/24/22 06/24/22 History Patient History Medical History Cerebrovascular accident Crohn disease CVA (cerebral vascular accident) Factor V deficiency History of stroke TIA (transient ischemic attack) Tobacco abuse Surgical History No pertinent past surgical history Social History Smoking Status: Former smoker Hx Alcohol Use: No Hx Substance Use: No Preferred Language: Georgian Supervisor Cigar Processing Required: Yes Beliefs That Will Affect Care: None Current Living Situation: Other Feels Safe at Home: Yes Safety Concerns: Feels Safe At This Time Assistive Devices: None Review of Systems Review of Systems: All systems reviewed & are unremarkable except as noted in HPI & below Physical Exam Physical Exam: General Examination: Constitutional: Well developed person in no acute distress. HENT: Normal exam with inspection. CV: Hearth rhythm is regular. Neck: Supple, no carotid bruits. Lungs: Non-labored and comfortable breathing. Abdomen: Soft, non-tender, non-distended. Skin: No rash or ecchymosis. Extremities: No edema or cyanosis NEUROLOGICAL EXAMINATION: Mental Status: Alert and oriented to place, person and time. Cranial Nerves: II-XII are intact. No nystagmus. Funduscopy: Normal looking optic discs. Motor: 5/5 in left upper and bilateral lower extremities Right deltoid 1-/5 Right BC 4-/5 Right TC 4-/5 Right BR 4/5 Right wrist dorsiflexors 3-/5 Right hand finger dorsiflexors 3+/5 Right hand hospital secretary 1-/5 Right APB and FDI 0/5 Note: There is questionable poor effort. Tone: Normal without spasticity or rigidity. Sensory: Intact to all sensory modalities except the patient describes whole right arm apresthesia and decreased sensation without dermatomal distribution. Coordination: No dysmetria with left FTN and bilateral HTS testing. Speech: Fluent. Comprehension is intact. Gait: Not assessed but reportedly normal Musculoskeletal: Normal muscle bulk, no atrophy. Results & Data ([facility]) Vital Signs (Past 12 Hours) Vital Signs Temp Pulse Pulse Resp BP Pulse Ox O2 Del Method 06/25/22 12:18 36.7 C 84 18 106/68 95 06/25/22 07:54 36.8 C 80 18 111/75 96 06/25/22 07:36 93 H 06/25/22 04:39 36.6 C 83 18 115/75 95 Room Air Laboratory Results Laboratory Results - last 24 hr 06/24/22 06/24/22 06/25/22 17:07 17:07 09:44 WBC 7.60 RBC 4.29 Hgb 13.8 Hct 40.1 MCV 93.5 MCH 32.2 MCHC 34.4 RDW Std Deviation 47.0 H RDW Coeff of Noreen 13.6 Plt Count 335 MPV 8.6 L Sodium Potassium Chloride Carbon Dioxide Anion Gap BUN Creatinine Est Cr Clr Drug Dosing Est GFR ( Amer) Est GFR (Non-Af Amer) BUN/Creatinine Ratio Glucose Calcium Magnesium Total Bilirubin AST ALT Alkaline Phosphatase Total Protein Albumin Globulin Albumin/Globulin Ratio Triglycerides 95 Cholesterol 206 H LDL Cholesterol, Calc 131 VLDL Cholesterol, Calc 19 HDL Cholesterol 56 Cholesterol/HDL Ratio 3.7 TSH 0.934 06/25/22 09:44 WBC RBC Hgb Hct MCV MCH MCHC RDW Std Deviation RDW Coeff of Noreen Plt Count MPV Sodium 136 Potassium 4.1 Chloride 107 Carbon Dioxide 24 Anion Gap 5 BUN 14 Creatinine 0.66 Est Cr Clr Drug Dosing 89.7 Est GFR ( Amer) 123.6 Est GFR (Non-Af Amer) 106.7 BUN/Creatinine Ratio 21.2 H Glucose 108 H Calcium 8.7 Magnesium 1.9 Total Bilirubin 0.4 AST 35 ALT 39 Alkaline Phosphatase 84 Total Protein 6.7 Albumin 3.5 Globulin 3.2 Albumin/Globulin Ratio 1.1 Triglycerides Cholesterol LDL Cholesterol, Calc VLDL Cholesterol, Calc HDL Cholesterol Cholesterol/HDL Ratio TSH Diagnostic Findings Head CT 06/24/22 09:55 CT head/brain wo con CLINICAL HISTORY: 46 years-old Female with Stroke Alert. Acute strokelike symptoms TECHNIQUE: Multiple axial CT images of the head were obtained without contrast. A dose lowering technique was utilized adhering to the principles of ALARA. CT DOSE: 537.48 mGy.cm COMPARISON: None. FINDINGS: No acute intracranial hemorrhage, midline shift, intracranial mass, hydrocephalus, territorial ischemia or abnormal extra-axial collection. Encephalomalacia is noted within the right frontal lobe on image 14 series 2 measuring 2.7 cm. The calvarium is intact. The paranasal sinuses, mastoid air cells, and middle ear cavities are clear. IMPRESSION: 1. No acute intracranial abnormality identified. 2. Encephalomalacia of the right frontal lobe. ACT 112: Negative or not required by law. The above report was generated using voice recognition software. It may contain grammatical, syntax or spelling errors. Electronically signed by: He Carranza M.D. 06/24/2022 10:30 AM Head CTA 06/24/22 11:35 CT angio neck with con, CT angio head w con CLINICAL HISTORY: 46 years-old Female with can't more RUE. Acute strokelike symptoms COMPARISON STUDY: Head CT of same day TECHNIQUE: Following the IV administration of 110 mL of Optiray, CT angiogram of the head and neck was performed from the aortic arch to the skull apex. Images are reviewed in the axial, sagittal, and coronal planes. 3-D MIPS images are created and assessed. IV contrast was administered without complication. All measurements were calculated based on NASCET criteria. A dose lowering technique was utilized adhering to the principles of ALARA. CT DOSE: 496.71 mGy.cm FINDINGS: Three-vessel morphology of the thoracic aortic arch. There is patency of the innominate and imaged subclavian arteries. The common and internal carotid arteries are widely patent. The middle and anterior cerebral arteries are widely patent. The vertebral arteries are codominant. 70% stenosis of the V2 segment left vertebral artery at the level of C3-C4 secondary to degenerative spurring of the cervical spine. Less than 50% stenosis involves the V2 segment the level of C5-C6. The basilar and posterior cerebral arteries are patent bilaterally. Cerebral venous sinuses are patent. There is no abnormal intracranial enhancement. Partially imaged 5 mm subpleural nodular opacity of the superior segment right lower lobe on image 1. Mild subpleural bleb formation of the lung apices. No pneumothorax. Unremarkable soft tissues. No acute fracture. Moderate to severe degenerative changes of the cervical spine. IMPRESSION: 1. No aneurysm, dissection or arterial occlusion. 2. 70% stenosis of the V2 segment left vertebral artery secondary to degenerative spurring of the cervical spine. 3. Moderate to severe degenerative changes of the cervical spine. 4. Partially imaged 5 mm subpleural solid nodule of the superior segment right lower lobe. ACT 112: Negative or not required by law. Please refer to below summary of Fleischner criteria recommendations for follow- up of incidental CT nodules (Janet Ward, Guidelines for management of small pulmonary nodules detected on CT scans: A statement from the Fleischner Society, Radiology 237: [phone].) SOLID NODULES Solitary nodule size: <6 mm * Low risk patients: no follow-up needed * high risk patients: optional CT at 12 months Note: newly detected indeterminate nodule in persons 35 years of age or older. * Low risk patients: minimal or absent history of smoking and/or other known risk factors * high risk patients: history of smoking or of other known risk factors (e.g. first degree relative with lung cancer, or exposure to asbestos, radon, uranium) * if a nodule up to 8 mm is partly solid or is ground glass further follow-up is required after 24 months to exclude possible slow growing adenocarcinoma (AMANDA) The above report was generated using voice recognition software. It may contain grammatical, syntax or spelling errors. Electronically signed by: He Carranza M.D. 06/24/2022 12:56 PM Neck CTA 06/24/22 11:35 CT angio neck with con, CT angio head w con CLINICAL HISTORY: 46 years-old Female with can't more RUE. Acute strokelike symptoms COMPARISON STUDY: Head CT of same day TECHNIQUE: Following the IV administration of 110 mL of Optiray, CT angiogram of the head and neck was performed from the aortic arch to the skull apex. Images are reviewed in the axial, sagittal, and coronal planes. 3-D MIPS images are created and assessed. IV contrast was administered without complication. All measurements were calculated based on NASCET criteria. A dose lowering technique was utilized adhering to the principles of ALARA. CT DOSE: 496.71 mGy.cm FINDINGS: Three-vessel morphology of the thoracic aortic arch. There is patency of the innominate and imaged subclavian arteries. The common and internal carotid arteries are widely patent. The middle and anterior cerebral arteries are widely patent. The vertebral arteries are codominant. 70% stenosis of the V2 segment left vertebral artery at the level of C3-C4 secondary to degenerative spurring of the cervical spine. Less than 50% stenosis involves the V2 segment the level of C5-C6. The basilar and posterior cerebral arteries are patent bilaterally. Cerebral venous sinuses are patent. There is no abnormal intracranial enhancement. Partially imaged 5 mm subpleural nodular opacity of the superior segment right lower lobe on image 1. Mild subpleural bleb formation of the lung apices. No pneumothorax. Unremarkable soft tissues. No acute fracture. Moderate to severe degenerative changes of the cervical spine. IMPRESSION: 1. No aneurysm, dissection or arterial occlusion. 2. 70% stenosis of the V2 segment left vertebral artery secondary to degenerative spurring of the cervical spine. 3. Moderate to severe degenerative changes of the cervical spine. 4. Partially imaged 5 mm subpleural solid nodule of the superior segment right lower lobe. ACT 112: Negative or not required by law. Please refer to below summary of Fleischner criteria recommendations for follow- up of incidental CT nodules (Janet Ward, Guidelines for management of small pulmonary nodules detected on CT scans: A statement from the Fleischner Society, Radiology 237: [phone].) SOLID NODULES Solitary nodule size: <6 mm * Low risk patients: no follow-up needed * high risk patients: optional CT at 12 months Note: newly detected indeterminate nodule in persons 35 years of age or older. * Low risk patients: minimal or absent history of smoking and/or other known risk factors * high risk patients: history of smoking or of other known risk factors (e.g. first degree relative with lung cancer, or exposure to asbestos, radon, uranium) * if a nodule up to 8 mm is partly solid or is ground glass further follow-up is required after 24 months to exclude possible slow growing adenocarcinoma (AMANDA) The above report was generated using voice recognition software. It may contain grammatical, syntax or spelling errors. Electronically signed by: He Carranza M.D. 06/24/2022 12:56 PM Shoulder X-Ray 06/24/22 11:36 XR shoulder RT min 2V routine HISTORY: 46 years-old Female can't move RUE acute right shoulder pain COMPARISON: None TECHNIQUE: 3 views of the right shoulder FINDINGS: Mild osteoarthritis of the AC joint. No significant osteoarthritis of the glenohumeral joint. There is no acute fracture, dislocation or opaque foreign body. 1.2 cm nodular density of the right lung base may be secondary to summation versus pulmonary nodule. IMPRESSION: 1. No acute fracture or dislocation. 2. Summation density versus pulmonary nodule of the right lung base, 1.2 cm. ACT 112: Negative or not required by law. The above report was generated using voice recognition software. It may contain grammatical, syntax or spelling errors. Electronically signed by: He Carranza M.D. 06/24/2022 11:52 AM Brain MRI 06/24/22 13:36 MR brain wo con HISTORY: 46 years-old Female RUE weakness acute strokelike symptoms COMPARISON: CTA had and neck of same day TECHNIQUE: Multiplanar multisequence MRI of the brain was obtained without the use of IV contrast. FINDINGS: [facility] Att[facility] localizer images demonstrate no gross extracranial abnormality. No restricted diffusion to suggest acute or subacute infarct. Structures are unremarkable. Degenerative changes of the cervical spine. Decreased T1 signal of the C4 vertebral body is indeterminate. Mild C3-C4 central canal stenosis. No acute intracranial hemorrhage, midline shift, abnormal extra axial collection, hydrocephalus or intracranial mass. No pathologic blooming artifact on the T2 star series. Encephalomalacia and gliosis within the right frontal lobe redemonstrated. Mild nonspecific increased T2/FLAIR signal within the anterior frontal lobe periventricular white matter. Cerebral venous sinuses and major arterial flow voids appear patent. The skull, orbits and soft tissues are unremarkable. IMPRESSION: 1. No acute intracranial abnormality. No acute or subacute infarct. 2. Encephalomalacia and gliosis of the right frontal lobe from a chronic insult. ACT 112: Negative or not required by law. The above report was generated using voice recognition software. It may contain grammatical, syntax or spelling errors. Electronically signed by: He Carranza M.D. 06/24/2022 3:[address] 06/25/22 12:19 CT chest diagnostic wo con CT DOSE: 218.13 mGycm HISTORY: Follow-up pulmonary nodule TECHNIQUE: Multiaxial CT images of the chest were performed without contrast. A dose lowering technique was utilized adhering to the principles of ALARA. COMPARISON: CTA neck 06/24/2022. FINDINGS: Stable 5 mm subpleural nodule within the superior segment of the right lower lobe on image 99. No pneumothorax. There are few small blebs within the lung apices. There is a 6 mm nodule within the base of the left lower lobe on image 217. There is a 4 mm nodule within the left lower lobe on image 207. There is a 5 mm nodule within the left lower lobe on image 191 and an 8 mm nodule within the right middle lobe image 190. These demonstrate faint groundglass halos. These are indeterminate but could represent areas of inflammatory/infectious change. A cluster of nodular/tubular foci within the base of the right lower lobe best seen on images 202 through 211 consistent with a pulmonary AVM. These measure a total size of approximately 15 mm. No focal lung consolidations identified. The central airways are patent. No suspicious lytic are blastic osseous lesions. No mediastinal or hilar lymphadenopathy. The heart is normal in size. Normal esophagus. The visualized liver, spleen, and adrenal glands are unremarkable. Prior cholecystectomy. Normal caliber thoracic aorta. No pleural or pericardial effusions. No suspicious lytic or blastic osseous lesions. IMPRESSION: 1. A few scattered subcentimeter pulmonary nodules as described above some which demonstrate faint groundglass halos and could represent inflammatory/infectious change. [address] follow-up recommended to evaluate for stability/resolution of these nodules. Dominant nodule within the right middle lobe measures 8 mm. 2. Right lower lobe pulmonary AVM as described above. ACT 112: Positive. There are findings on this exam that require communication between the performing entity and the patient following Patient Test Result Information Act ([place] Act 112) guidelines. Electronically signed by: Smith Leroy M.D. 06/25/2022 1:22 PM (1) Vertebral artery stenosis Laterality: left Qualified Code(s): I65.02 - Occlusion and stenosis of left vertebral artery
[2022-06-25] MEDS ORDERED: PROMETHAZINE HCL 12.5 MG in SODIUM CHLORIDE 0.9% 50 ML IV PRN (19:39)
[2022-06-25] MEDS ORDERED: PROMETHAZINE HCL 12.5 MG in SODIUM CHLORIDE 0.9% 50 ML IV STA (19:40)
[2022-06-25] MEDS ORDERED: KETOROLAC TROMETHAMINE 15 MG/ML VIAL IV ONE (22:44)
[2022-06-26] MEDS: DOCUSATE SODIUM 100 MG CAP PO SCH ×2 (08:15→21:38)
[2022-06-26] MEDS: ATORVASTATIN 40 MG TAB PO SCH (08:15)
[2022-06-26] MEDS: ASPIRIN 81 MG ECTAB PO SCH (08:15)
[2022-06-26] MEDS: FLUoxetine HCL 20 MG CAP PO SCH (08:15)
[2022-06-26 10:09] LABS: BUN Creatinine Ratio 24.3 (10-20); Calcium 9.1 mg/dl (8.5-10.1); Creatinine Clr Calc Pharmacy 79.2 ml/min; Est GFR (African American) 113.4 ml/min; Est GFR (Non-African American) 97.8 ml/min; Potassium 4.2 mmol/L (3.5-5.1)
[2022-06-26] MEDS ORDERED: GADOBUTROL 65ML VIAL IV ONE (18:19)
--- NOTE | 2022-06-26 18:50 | Magnetic Resonance Report ---
CLINICAL HISTORY: Right Upper Ext weakness/numbness TECHNIQUE: MRI of the cervical spine is performed utilizing various T1 and T2 sequences in the axial and sagittal planes. IV contrast was administered for this examination. Comparison: None available at the time of this dictation. FINDINGS: The alignment is anatomical. There is decreased T1 signal at C4-C5 with some enhancement noted in the se foci. Increased T2 signal is noted in these vertebrae. Degenerative changes are noted in the discs and vertebral bodies. C2-C3: Unremarkable. C3-C4: There is a broad-based posterior disc bulge with moderate to severe canal stenosis, AP diamete r 6.5 mm, and severe bilateral neuroforaminal stenosis. C4-C5: Broad-based posterior disc bulge. Moderate canal stenosis, AP diameter 7 cm, with severe bilat eral neural foraminal stenosis. C5-C6: Broad-based posterior disc bulge. Moderate canal stenosis, AP diameter 7 mm. Severe bilateral neuroforaminal stenosis. C6-C7: Broad-based posterior disc bulge. Moderate canal stenosis, AP diameter 8 mm. Severe bilateral neuroforaminal stenosis. C7-T1: Unremarkable. The spinal ligaments are intact, without evidence of disruption or abnormal signal intensity. The spi nal cord is normal in signal intensity and there is no evidence of cord contusion. There is no eviden ce of an extradural, intradural, extramedullary or intramedullary lesion. Visualized soft tissues are normal. Visualized brain parenchyma is normal. IMPRESSION: 1. Multilevel degenerative disc disease with up to moderate to severe canal stenosis, AP diameter 6. 5 mm, and severe bilateral neuroforaminal stenosis at multiple levels. 2. Multilevel degenerative changes of the spine likely representing Modic 1 degenerative changes. Os seous metastatic disease is considered less likely. ACT 112: Negative or not required by law. Electronically signed by: Esteban Gasac M.D. 06/26/2022 6:48 PM
--- NOTE | 2022-06-26 19:15 | Hospitalist Progress Note ---
Date of Service June 26, 2022 Assessment & Plan (1) Right arm weakness: Plan: Per admitting service notes with addendum: Right upper extremity weakness History of factor V Leyden deficiency, history of previous frontal CVA Patient not on aspirin, statin or anticoagulation Has not followed up with physicians for the past few years Patient presented with right upper extremity weakness. CT angio of the head and neck did not show any aneurysm, dissection or arterial occlusion 1. No aneurysm, dissection or arterial occlusion. 2. 70% stenosis of the V2 segment left vertebral artery secondary to degenerative spurring of the cervical spine. 3. Moderate to severe degenerative changes of the cervical spine. 4. Partially imaged 5 mm subpleural solid nodule of the superior segment right lower lobe. Brain MRI: 1. No acute intracranial abnormality. No acute or subacute infarct. 2. Encephalomalacia and gliosis of the right frontal lobe from a chronic insult. Echocardiogram: Left ventricular systolic is normal No regional wall motion abnormalities EF 50 to 55% No significant valvular pathology Continue aspirin 81 mg p.o. daily Lipitor 40 mg p.o. daily Neurology service consulted: Recommend MRI of the cervical spine, right brachial plexus-pending PT and OT evaluation (2) Factor V deficiency: Plan: Neurology service consulted Recommend hypercoagulable work-up: Pending If positive, patient will require anticoagulation Vertebral artery stenosis Continue aspirin Lipitor Per neurology, follow-up imaging in 1 year, earlier as needed (3) Tobacco abuse: Plan: Patient has a long history of smoking Counseling was provided (4) Lung nodule: Plan: CT chest: 1. A few scattered subcentimeter pulmonary nodules as described above some which demonstrate faint groundglass halos and could represent inflammatory/infectious change. [address] follow-up recommended to evaluate for stability/resolution of these nodules. Dominant nodule within the right middle lobe measures 8 mm. 2. Right lower lobe pulmonary AVM as described above. No cough, afebrile Follow-up as an outpatient Repeat CT chest as outpatient History of Crohn's disease No GI symptoms Needs to follow-up with GI as an outpatient Plan Disposition Return to correctional facility once cleared by neurology service Admission and Anticipated Discharge Date Admission Date: June 24, 2022 Subjective Follow-up for right upper extremity weakness, etc. Seen resting in bed, comfortable, not in distress Still having similar right upper extremity weakness, with paresthesias No other new weakness or numbness Ambulating well No other symptom Review of Systems Review of Systems: all noted and negative except for above Physical Exam Physical Exam: General- oriented x 3, not in distress, speaks in sentences with no effort or accessory muscle use Eyes- anicteric Neck- no JVD Lungs- clear breath sounds bilaterally, no rales/wheezes Heart- normal rate, regular rhythm; no murmurs Abdomen- normal bowel sounds, nondistended, soft, nontender Extremities- no pretibial edema, no calf tenderness Neuro- alert, oriented x 3 Right upper extremity: Motor strength 1-2 out of 5 No handgrip Sensation 70% No other focal neurologic symptoms Skin- warm & dry Results & Data Results & Data ([facility]) Vital Signs (Past 12 Hours) Vital Signs Temp Pulse Pulse Resp BP Pulse Ox O2 Del Method 06/26/22 16:01 36.8 C 86 18 111/66 95 06/26/22 15:05 96 H 06/26/22 11:36 36.8 C 109 H 21 123/61 94 Room Air 06/26/22 07:54 36.6 C 78 18 111/73 97 Room Air all noted and reviewed including below
--- NOTE | 2022-06-26 20:47 | Magnetic Resonance Report ---
MR chest wo/w con CLINICAL HISTORY: RUE weakness, numbness TECHNIQUE: Multisequence, multiplanar MR images of the chest were obtained without contrast COMPARISON: Comparison is made to CT chest 06/25/2022 FINDINGS: No evidence of acute fracture. No joint effusion is seen. No soft tissue abnormality is seen. The med iastinum, lung, and axilla are normal. Degenerative disc disease is partially visualized. IMPRESSION: No soft tissue abnormality is seen to explain right upper extremity numbness. No mass is seen in the region of the brachial plexus. ACT 112: Negative or not required by law. Electronically signed by: Esteban Gasca M.D. 06/26/2022 8:44 PM
[2022-06-26] MEDS ORDERED: KETOROLAC TROMETHAMINE 15 MG/ML VIAL IV ONE (21:51)
[2022-06-27] MEDS: DOCUSATE SODIUM 100 MG CAP PO SCH ×2 (08:02→21:26)
[2022-06-27] MEDS: ACETAMINOPHEN 325 MG TAB PO PRN (08:02)
[2022-06-27] MEDS: ATORVASTATIN 40 MG TAB PO SCH (08:02)
[2022-06-27] MEDS: FLUoxetine HCL 20 MG CAP PO SCH (08:02)
[2022-06-27] MEDS: ASPIRIN 81 MG ECTAB PO SCH (08:02)
--- NOTE | 2022-06-27 12:50 | Discharge Summary ---
Date of Service June 27, 2022 Admission HPI Per Admitting Provider Patient is a 46-year-old female with past medical history of factor V Leiden mutation on no anticoagulation, history of frontal stroke in the past on no antiplatelet, homeless and currently in state presented with brought to the hospital for right upper extremity weakness. According to the patient, it started yesterday morning. It was associated with decreased sensation. She is not able to move or lift her right arm from shoulder and below. She was not brought to the hospital yesterday. She continued to have the weakness and today was brought to the hospital to be evaluated for stroke. She also claims that she had a previous history of TIA/stroke which was associated with slurred speech. She has a diagnosis of factor V Leiden deficiency and has not been on any anticoagulation at least for the last 5 years. She claims that she is diagnosed with a Crohn's disease at the facility due to abdominal pain and is a started on some medication which she does not remember the name. She denies any blurred vision, slurred speech, nausea, vomiting, chest pain or shortness of breath, abdominal pain, other urinary or GI symptoms. She ambulates and walks with no difficulty. Principal Diagnosis Back pain Discharge Data Allergies Allergy/AdvReac Type Severity Reaction Status Date / Time No Known Allergies Allergy Verified 06/24/22 15:55 Consultations 06/24/22 13:36 ED Decision to Admit Stat 06/24/22 16:51 Consult Neurology Routine 06/27/22 08:06 Consult Orthopedic Surgery Routine Ordered Studies 06/24/22 09:55 CT head/brain wo con Stat 06/24/22 11:35 CT angio head w con Stat CT angio neck with con Stat 06/24/22 13:36 MR brain wo con Stat 06/25/22 12:19 CT chest diagnostic wo con Routine 06/26/22 10:30 MR cervical spine wo/w con Routine 06/26/22 12:13 MRI chest [MR chest wo/w con] Routine Total Time Total Time Spent Total Time Spent (In Minutes): 20 minutes Discharge Plan Discharge Items [facility] Disposition: [facility] Reason For Visit: CEREBROVASCULAR ACCIDENT Discharge Diagnosis: Cervical radiculopathy Activity: Resume your previous activity Non-emergency contact: Primary Care Provider Call non-emergency contact if: you have any medication questions and your symptoms worsen Follow-up/Referrals: [facility] [Primary Care Provider] - Diet: Regular Addtl Attending Provider Instructions: You were admitted to the hospital with right arm weakness. MRI brain did not s how any stroke. MRI of the cervical spine showed " Multilevel degenerative disc disease with up to moderate to severe canal stenosis, AP diameter 6.5 mm, and severe bilateral neuroforaminal stenosis at multiple levels." You are started on prednisone taper as per recommendation by ortho-spine and neurology. Please take it as instructed below: 1) Take prednisone 60 mg (6 tablets of 10mg) once daily for 3 days 2) Then, prednisone 40 mg (4 tablets of 10mg) once daily for 3 days 3) Then, prednisone 20 mg (2 tablets of 10mg) once daily for 3 days 4) Then, prednisone 10 mg (1 tablet of 10mg) once daily for 3 days, Then STOP. Total duration of treatment is 12 days. You will need to follow-up with neurology as outpatient to have outpatient EMG and nerve conduction study. You are also started on Lipitor 40 mg once daily. Hypercoagulable work-up was sent during your hospitalization. You need to follow-up with the primary care doctor for the results. You may need to be on long-term anticoagulation if the lab work-up confirms hypercoagulable state. The CT chest on admission showed few scattered subcentimeter pulmonary nodules. It will require follow-up image with CT scan Chest. Please discuss this finding with her primary care doctor. Pending Studies at Discharge: No Stand-Alone Forms: My [facility] Skilled Items Patient informed of condition?: No Discharge Level of Care: Other Communicable Disease: No Discharge Prognosis: Stable Lines: None Urinary Catheter: No Medications and DC Order Prescriptions: New atorvastatin 40 mg Tablet 40 mg PO QAM Qty: 30 0RF prednisone 10 mg tablet See Taper PO DAILY Qty: 39 0RF Taper: Taper, Blank 60 mg DAILY for 3 Days 40 mg DAILY for 3 Days 20 mg DAILY for 3 Days 10 mg DAILY for 3 Days Continued albuterol sulfate 2.5 mg /3 mL (0.083 %) Solution For Nebulization 2.5 mg INHALATION TID PRN (Reason: Shortness Of Breath) hydroxyzine HCl 50 mg Tablet 50 mg PO HS PRN (Reason: RESTLESSNESS/SLEEP) aspirin 81 mg Tablet,Delayed Release (Dr/Ec) 81 mg PO DAILY fluoxetine 20 mg Tablet 20 mg PO DAILY docusate sodium [Colace] 100 mg Capsule 100 mg PO BID Excedrin Migraine 250-250-65 mg Tablet 1 tab PO DAILY PRN (Reason: Migraine Headache) Discharge Orders: Discharge Order (Routine); Ordered 06/28/22 Ordered By: Joaquim Romo Admission Data Admit Date/Time: 06/24/22 14:56 Attending Provider: Joaquim Romo Admit Provider: Caitlyn Gutiérrez Primary Care Provider: [facility] Other Providers: Caitlyn Gutiérrez ; Shyam Snow ; Mc Hamilton Other Interventions: Discharge Summary Assessment (RN) Last Done: 06/28/22 12:19
--- NOTE | 2022-06-27 12:59 | Orthopedic Consultation ---
Date of Consultation June 27, 2022 Assessment & Plan (1) Cervical stenosis of spinal canal: Assessment cervical spinal stenosis. Plan at this time MRI cervical spine does demonstrate 4 level degenerative disc disease with significant spinal stenosis at all levels. I do not appreciate evidence of myelomalacia. At this time she may have a motor deficit secondary to her spinal stenosis. There is no radicular pain or sensory deficit unable to appreciate at this time. She would be high risk for any surgical intervention at this time. I recommend a course of steroids to see if she can begin some recovery combined with physical and occupational therapy. If she were to seek surgical care in the future she most likely require a tertiary care center in light of her health history and the extent of the procedure required. History of Present Illness Reason for Consultation: Right arm weakness Attending Physician: Joaquim Romo MD History of Present Illness This is a 45-year-old female presents emergency room from her correctional facility with complaints of right arm weakness. She denies any trauma fall or event. He does have a history of strokes and possible coagulopathy. This morning she notes no significant radicular pain. She denies any symptoms involving left upper extremity or bilateral lower extremities. Allergies Allergy/AdvReac Type Severity Reaction Status Date / Time No Known Allergies Allergy Verified 06/24/22 15:55 Home Medications Medication Instructions Recorded Confirmed Type albuterol sulfate 2.5 mg/3 mL 2.5 mg inhalation TID PRN 06/24/22 06/24/22 Hist ory (0.083 %) solution for nebulization Shortness Of Breath aspirin 81 mg tablet,delayed 81 mg PO DAILY 06/24/22 06/24/22 History release [id number] 250 1 tab PO DAILY PRN Migraine 06/24/22 06/24/22 History mg-250 mg-65 mg tablet (Excedrin Headache Migraine) docusate sodium 100 mg capsule 100 mg PO BID 06/24/22 06/24/22 History (Colace) fluoxetine 20 mg tablet 20 mg PO DAILY 06/24/22 06/24/22 History hydroxyzine HCl 50 mg tablet 50 mg PO HS PRN RESTLESSNESS/SLEEP 06/24/22 06/24/22 History Patient History Medical History Cerebrovascular accident Crohn disease CVA (cerebral vascular accident) Factor V deficiency History of stroke TIA (transient ischemic attack) Tobacco abuse Surgical History No pertinent past surgical history Social History Smoking Status: Former smoker Hx Alcohol Use: No Hx Substance Use: No Preferred Language: Nepali 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 There is no gross Lhermitte's phenomenon or Spurling sign. She has negative Jacek sign testing the left hand. There is no ankle clonus. Sensory is intact to cold and light touch bilateral upper extremities. She has dense weakness in 1/5 biceps triceps and grasp. Her deltoid is a 3+/5. Results & Data ([facility]) Vital Signs (Past 12 Hours) Vital Signs Temp Pulse Pulse Resp BP Pulse Ox O2 Del Method 06/27/22 11:28 36.8 C 97 H 18 102/69 95 Room Air 06/27/22 07:06 80 06/27/22 03:21 36.8 C 89 18 93/61 L 95 Room Air
[2022-06-27] MEDS ORDERED: PNEUMOCOCCAL Polysaccharide Vaccine 25mcg/0.5mL vial/Syr IM ONE (14:30)
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
--- NOTE | 2022-06-27 15:11 | Hospitalist Progress Note ---
Date of Service June 27, 2022 Assessment & Plan (1) Right arm weakness: Plan: Right upper extremity weakness History of factor V Leyden deficiency, history of previous frontal CVA Patient presented with right upper extremity weakness. Work up: CT angio of the head and neck did not show any aneurysm, dissection or arterial occlusion 1. No aneurysm, dissection or arterial occlusion. 2. 70% stenosis of the V2 segment left vertebral artery secondary to degenerative spurring of the cervical spine. 3. Moderate to severe degenerative changes of the cervical spine. 4. Partially imaged 5 mm subpleural solid nodule of the superior segment right lower lobe. Brain MRI: 1. No acute intracranial abnormality. No acute or subacute infarct. 2. Encephalomalacia and gliosis of the right frontal lobe from a chronic insult. Cervical MRI; 1. Multilevel degenerative disc disease with up to moderate to severe canal stenosis, AP diameter 6.5 mm, and severe bilateral neuroforaminal stenosis at multiple levels. 2. Multilevel degenerative changes of the spine likely representing Modic 1 degenerative changes. Osseous metastatic disease is considered less likely. Echocardiogram: Left ventricular systolic is normal No regional wall motion abnormalities EF 50 to 55% No significant valvular pathology Plan: Result of cervical MRI reviewed and discussed with Ortho spine. No evidence of myelomalacia present. The motor deficit may be due to her spinal stenosis. Patient has high risk for any surgical intervention at that time. Recommended steroid with PT/OT. Started on dexamethasone 8 mg every 8 hours. We will follow the response. Discussed the finding with the patient as well at bedside. Also reviewed the discussion with Ortho spine. She agrees with trial of steroids. Patient will need outpatient EMG and nerve conduction study as per neurology. Started on Lipitor and aspirin. (2) Factor V deficiency: Plan: Recommend hypercoagulable work-up: Pending If positive, patient will require anticoagulation Vertebral artery stenosis Continue aspirin Lipitor Patient will need follow-up with neurology clinic. (3) Tobacco abuse: Plan: Patient has a long history of smoking Counseling was provided (4) Lung nodule: Plan: CT chest: 1. A few scattered subcentimeter pulmonary nodules as described above some which demonstrate faint groundglass halos and could represent inflammatory/infectious change. [address] follow-up recommended to evaluate for stability/resolution of these nodules. Dominant nodule within the right middle lobe measures 8 mm. 2. Right lower lobe pulmonary AVM as described above. No cough, afebrile Follow-up as an outpatient Repeat CT chest as outpatient History of Crohn's disease No GI symptoms Needs to follow-up with GI as an outpatient Plan [facility]position [facility] after resolution of medical issues. will see response of steroids. Admission and Anticipated Discharge Date Admission Date: June 24, 2022 Subjective Patient seen and examined at bedside. She continues to complain of weakness on her right arm. She says that her weakness has not improved. She denies any pain or sensory changes in her arm Telemetry shows sinus rhythm; no arrhythmia noted overnight. Review of Systems Review of Systems: All systems reviewed & are unremarkable except as noted in Subjective Physical Exam Physical Exam: Constitutional: WD/WN, vitals as above, NAD, sitting up in bed, pleasant, conversing easily Respiratory: normal respiratory effort, lungs clear to auscultation, no wheeze, rales, rhonchi. Normal insp/exp effort, no accessory muscle use Cardiovascular: RRR, no murmur, no edema Vessels: no JVD or carotid bruit Chest: normal inspection of chest Abdomen: normal bowel sounds, soft, nontender, no hepatosplenomegaly Musculoskeletal: no cyanosis or clubbing, extremities motor strength 5/5 Skin: no rashes, warm and dry normal turgor Neurologic: Cranial nerve II to XII intact Weakness noted in right bicep, tricep, brachioradialis along with handgrip. Sensation intact No other focal deficit. Lymphatic: no cervical or axillary lymphadenopathy : deferred. Results & Data Results & Data ([facility]) Vital Signs (Past 12 Hours) Vital Signs Temp Pulse Pulse Resp BP Pulse Ox O2 Del Method 06/27/22 11:28 36.8 C 97 H 18 102/69 95 Room Air 06/27/22 07:06 80 06/27/22 03:21 36.8 C 89 18 93/61 L 95 Room Air Laboratory Results Laboratory Results WBC 7.60 K/ul (4.8-10.8) 06/25/22 09:44 RBC 4.29 M/uL (3.93-5.22) 06/25/22 09:44 Hgb 13.8 g/dl (12.0-16.0) 06/25/22 09:44 Hct 40.1 % (34.1-44.9) 06/25/22 09:44 MCV 93.5 fL (80.0-100.0) 06/25/22 09:44 MCH 32.2 pg (25.0-34.0) 06/25/22 09:44 MCHC 34.4 g/dL (32.0-36.0) 06/25/22 09:44 RDW Std Deviation 47.0 fL (36.4-46.3) H 06/25/22 09:44 RDW Coeff of Noreen 13.6 % (11.5-14.5) 06/25/22 09:44 Plt Count 335 K/uL (130-400) 06/25/22 09:44 MPV 8.6 fL (9.4-12.3) L 06/25/22 09:44 PT 10.1 Seconds (9.0-12.0) 06/24/22 10:00 INR 0.9 (0.9-1.1) 06/24/22 10:00 APTT 24.8 Seconds (21.0-31.0) 06/24/22 10:00 PTT Ratio 0.9 06/24/22 10:00 Sodium 137 mmol/L (136-145) 06/26/22 09:08 Potassium 4.2 mmol/L (3.5-5.1) 06/26/22 09:08 Chloride 104 mmol/L (98-107) 06/26/22 09:08 Carbon Dioxide 26 mmol/L (21-32) 06/26/22 09:08 Anion Gap 7 (3-11) 06/26/22 09:08 BUN 18 mg/dl (6-23) 06/26/22 09:08 Creatinine 0.74 mg/dl (0.6-1.2) 06/26/22 09:08 Est Cr Clr Drug Dosing 79.2 ml/min 06/26/22 09:08 Est GFR ( Amer) 113.4 ml/min 06/26/22 09:08 Est GFR (Non-Af Amer) 97.8 ml/min 06/26/22 09:08 BUN/Creatinine Ratio 24.3 (10-20) H 06/26/22 09:08 Glucose 110 mg/dl (70-99(Fasting)) H 06/26/22 09:08 Calcium 9.1 mg/dl (8.5-10.1) 06/26/22 09:08 Magnesium 1.9 mg/dl (1.7-2.4) 06/25/22 09:44 Total Bilirubin 0.4 mg/dl (0.2-1.0) 06/25/22 09:44 AST 35 U/L (13-39) 06/25/22 09:44 ALT 39 U/L (7-52) 06/25/22 09:44 Alkaline Phosphatase 84 U/L (34-104) 06/25/22 09:44 Total Protein 6.7 gm/dl (6.0-8.3) 06/25/22 09:44 Albumin 3.5 gm/dl (3.4-5.0) 06/25/22 09:44 Globulin 3.2 gm/dl (2.5-4.0) 06/25/22 09:44 Albumin/Globulin Ratio 1.1 (0.9-2) 06/25/22 09:44 Triglycerides 95 mg/dl (0-150) 06/24/22 17:07 Cholesterol 206 mg/dl (0-200) H 06/24/22 17:07 LDL Cholesterol, Calc 131 mg/dl 06/24/22 17:07 VLDL Cholesterol, Calc 19 mg/dl (0-30) 06/24/22 17:07 HDL Cholesterol 56 mg/dl 06/24/22 17:07 Cholesterol/HDL Ratio 3.7 (0-5) 06/24/22 17:07 TSH 0.934 uIu/ml (0.300-4.500) 06/24/22 17:07 SARS-CoV-2, RNA, NAAT NEGATIVE (NEGATIVE) 06/24/22 11:[address] 06/24/22 09:55 CT head/brain wo con CLINICAL HISTORY: 46 years-old Female with Stroke Alert. Acute strokelike symptoms TECHNIQUE: Multiple axial CT images of the head were obtained without contrast. A dose lowering technique was utilized adhering to the principles of ALARA. CT DOSE: 537.48 mGy.cm COMPARISON: None. FINDINGS: No acute intracranial hemorrhage, midline shift, intracranial mass, hydrocephalus, territorial ischemia or abnormal extra-axial collection. Encephalomalacia is noted within the right frontal lobe on image 14 series 2 measuring 2.7 cm. The calvarium is intact. The paranasal sinuses, mastoid air cells, and middle ear cavities are clear. IMPRESSION: 1. No acute intracranial abnormality identified. 2. Encephalomalacia of the right frontal lobe. ACT 112: Negative or not required by law. The above report was generated using voice recognition software. It may contain grammatical, syntax or spelling errors. Electronically signed by: He Carranza M.D. 06/24/2022 10:30 AM Head CTA 06/24/22 11:35 CT angio neck with con, CT angio head w con CLINICAL HISTORY: 46 years-old Female with can't more RUE. Acute strokelike symptoms COMPARISON STUDY: Head CT of same day TECHNIQUE: Following the IV administration of 110 mL of Optiray, CT angiogram of the head and neck was performed from the aortic arch to the skull apex. Images are reviewed in the axial, sagittal, and coronal planes. 3-D MIPS images are c reated and assessed. IV contrast was administered without complication. All measurements were calculated based on NASCET criteria. A dose lowering technique was utilized adhering to the principles of ALARA. CT DOSE: 496.71 mGy.cm FINDINGS: Three-vessel morphology of the thoracic aortic arch. There is patency of the innominate and imaged subclavian arteries. The common and internal carotid art eries are widely patent. The middle and anterior cerebral arteries are widely patent. The vertebral arteries are codominant. 70% stenosis of the V2 segment left vertebral artery at the level of C3-C4 secondary to degenerative spurring of the cervical spine. Less than 50% stenosis involves the V2 segment the level of C5-C6. The basilar and posterior cerebral arteries are patent bilaterally. Cerebral venous sinuses are patent. There is no abnormal intracranial enhancement. Partially imaged 5 mm subpleural nodular opacity of the superior segment right lower lobe on image 1. Mild subpleural bleb formation of the lung apices. No pneumothorax. Unremarkable soft tissues. No acute fracture. Moderate to severe degenerative changes of the cervical spine. IMPRESSION: 1. No aneurysm, dissection or arterial occlusion. 2. 70% stenosis of the V2 segment left vertebral artery secondary to degenerative spurring of the cervical spine. 3. Moderate to severe degenerative changes of the cervical spine. 4. Partially imaged 5 mm subpleural solid nodule of the superior segment right lower lobe. ACT 112: Negative or not required by law. Please refer to below summary of Fleischner criteria recommendations for follow- up of incidental CT nodules (Janet Ward, Guidelines for management of small pulmonary nodules detected on CT scans: A statement from the Fleischner Society, Radiology 237: [phone].) SOLID NODULES Solitary nodule size: <6 mm * Low risk patients: no follow-up needed * high risk patients: optional CT at 12 months Note: newly detected indeterminate nodule in persons 35 years of age or older. * Low risk patients: minimal or absent history of smoking and/or other known risk factors * high risk patients: history of smoking or of other known risk factors (e.g. first degree relative with lung cancer, or exposure to asbestos, radon, uranium) * if a nodule up to 8 mm is partly solid or is ground glass further follow-up is required after 24 months to exclude possible slow growing adenocarcinoma (AMANDA) The above report was generated using voice recognition software. It may contain grammatical, syntax or spelling errors. Electronically signed by: He Carranza M.D. 06/24/2022 12:56 PM Neck CTA 06/24/22 11:35 CT angio neck with con, CT angio head w con CLINICAL HISTORY: 46 years-old Female with can't more RUE. Acute strokelike symptoms COMPARISON STUDY: Head CT of same day TECHNIQUE: Following the IV administration of 110 mL of Optiray, CT angiogram of the head and neck was performed from the aortic arch to the skull apex. Images are reviewed in the axial, sagittal, and coronal planes. 3-D MIPS images are created and assessed. IV contrast was administered without complication. All measurements were calculated based on NASCET criteria. A dose lowering technique was utilized adhering to the principles of ALARA. CT DOSE: 496.71 mGy.cm FINDINGS: Three-vessel morphology of the thoracic aortic arch. There is patency of the innominate and imaged subclavian arteries. The common and internal carotid arteries are widely patent. The middle and anterior cerebral arteries are widely patent. The vertebral arteries are codominant. 70% stenosis of the V2 segment left vertebral artery at the level of C3-C4 secondary to degenerative spurring of the cervical spine. Less than 50% stenosis involves the V2 segment the level of C5-C6. The basilar and posterior cerebral arteries are patent bilaterally. Cerebral venous sinuses are patent. There is no abnormal intracranial enhancement. Partially imaged 5 mm subpleural nodular opacity of the superior segment right lower lobe on image 1. Mild subpleural bleb formation of the lung apices. No pneumothorax. Unremarkable soft tissues. No acute fracture. Moderate to severe degenerative changes of the cervical spine. IMPRESSION: 1. No aneurysm, dissection or arterial occlusion. 2. 70% stenosis of the V2 segment left vertebral artery secondary to degenerative spurring of the cervical spine. 3. Moderate to severe degenerative changes of the cervical spine. 4. Partially imaged 5 mm subpleural solid nodule of the superior segment right lower lobe. ACT 112: Negative or not required by law. Please refer to below summary of Fleischner criteria recommendations for follow- up of incidental CT nodules (Janet Ward, Guidelines for management of small pulmonary nodules detected on CT scans: A statement from the Fleischner Society, Radiology 237: [phone].) SOLID NODULES Solitary nodule size: <6 mm * Low risk patients: no follow-up needed * high risk patients: optional CT at 12 months Note: newly detected indeterminate nodule in persons 35 years of age or older. * Low risk patients: minimal or absent history of smoking and/or other known risk factors * high risk patients: history of smoking or of other known risk factors (e.g. first degree relative with lung cancer, or exposure to asbestos, radon, uranium) * if a nodule up to 8 mm is partly solid or is ground glass further follow-up is required after 24 months to exclude possible slow growing adenocarcinoma (AMANDA) The above report was generated using voice recognition software. It may contain grammatical, syntax or spelling errors. Electronically signed by: He Carranza M.D. 06/24/2022 12:56 PM Shoulder X-Ray 06/24/22 11:36 XR shoulder RT min 2V routine HISTORY: 46 years-old Female can't move RUE acute right shoulder pain COMPARISON: None TECHNIQUE: 3 views of the right shoulder FINDINGS: Mild osteoarthritis of the AC joint. No significant osteoarthritis of the glenohumeral joint. There is no acute fracture, dislocation or opaque foreign body. 1.2 cm nodular density of the right lung base may be secondary to summation versus pulmonary nodule. IMPRESSION: 1. No acute fracture or dislocation. 2. Summation density versus pulmonary nodule of the right lung base, 1.2 cm. ACT 112: Negative or not required by law. The above report was generated using voice recognition software. It may contain grammatical, syntax or spelling errors. Electronically signed by: He Carranza M.D. 06/24/2022 11:52 AM Brain MRI 06/24/22 13:36 MR brain wo con HISTORY: 46 years-old Female RUE weakness acute strokelike symptoms COMPARISON: CTA had and neck of same day TECHNIQUE: Multiplanar multisequence MRI of the brain was obtained without the use of IV contrast. FINDINGS: [employer] localizer images demonstrate no gross extracranial abnormality. No restricted diffusion to suggest acute or subacute infarct. Structures are unremarkable. Degenerative changes of the cervical spine. Decreased T1 signal of the C4 vertebral body is indeterminate. Mild C3-C4 central canal stenosis. No acute intracranial hemorrhage, midline shift, abnormal extra axial collection, hydrocephalus or intracranial mass. No pathologic blooming artifact on the T2 star series. Encephalomalacia and gliosis within the right frontal lobe redemonstrated. Mild nonspecific increased T2/FLAIR signal within the anterior frontal lobe periventricular white matter. Cerebral venous sinuses and major arterial flow voids appear patent. The skull, orbits and soft tissues are unremarkable. IMPRESSION: 1. No acute intracranial abnormality. No acute or subacute infarct. 2. Encephalomalacia and gliosis of the right frontal lobe from a chronic insult. ACT 112: Negative or not required by law. The above report was generated using voice recognition software. It may contain grammatical, syntax or spelling errors. Electronically signed by: He Carranza M.D. 06/24/2022 3:[address] 06/25/22 12:19 CT chest diagnostic wo con CT DOSE: 218.13 mGycm HISTORY: Follow-up pulmonary nodule TECHNIQUE: Multiaxial CT images of the chest were performed without contrast. A dose lowering technique was utilized adhering to the principles of ALARA. COMPARISON: CTA neck 06/24/2022. FINDINGS: Stable 5 mm subpleural nodule within the superior segment of the right lower lobe on image 99. No pneumothorax. There are few small blebs within the lung apices. There is a 6 mm nodule within the base of the left lower lobe on image 217. There is a 4 mm nodule within the left lower lobe on image 207. There is a 5 mm nodule within the left lower lobe on image 191 and an 8 mm nodule within the right middle lobe image 190. These demonstrate faint groundglass halos. These are indeterminate but could represent areas of inflammat ory/infectious change. A cluster of nodular/tubular foci within the base of the right lower lobe best seen on images 202 through 211 consistent with a pulmonary AVM. These measure a total size of approximately 15 mm. No focal lung consolidations identified. The central airways are patent. No suspicious lytic are blastic osseous lesions. No mediastinal or hilar lymphadenopathy. The heart is normal in size. Normal esophagus. The visualized liver, spleen, and adrenal glands are unremarkable. Prior cholecystectomy. Normal caliber thoracic aorta. No pleural or pericardial effusions. No suspicious lytic or blastic osseous lesions. IMPRESSION: 1. A few scattered subcentimeter pulmonary nodules as described above some which demonstrate faint groundglass halos and could represent inflammatory/infectious change. [address] follow-up recommended to evaluate for stability/resolution of these nodules. Dominant nodule within the right middle lobe measures 8 mm. 2. Right lower lobe pulmonary AVM as described above. ACT 112: Positive. There are findings on this exam that require communication between the performing entity and the patient following Patient Test Result Information Act ([place] Act 112) guidelines. Electronically signed by: Smith Leroy M.D. 06/25/2022 1:22 PM Cervical Spine MRI 06/26/22 10:30 CLINICAL HISTORY: Right Upper Ext weakness/numbness TECHNIQUE: MRI of the cervical spine is performed utilizing various T1 and T2 sequences in the axial and sagittal planes. IV contrast was administered for this examination. Comparison: None available at the time of this dictation. FINDINGS: The alignment is anatomical. There is decreased T1 signal at C4-C5 with some enhancement noted in these foci. Increased T2 signal is noted in these vertebrae. Degenerative changes are noted in the discs and vertebral bodies. C2-C3: Unremarkable. C3-C4: There is a broad-based posterior disc bulge with moderate to severe canal stenosis, AP diameter 6.5 mm, and severe bilateral neuroforaminal stenosis. C4-C5: Broad-based posterior disc bulge. Moderate canal stenosis, AP diameter 7 cm, with severe bilateral neural foraminal stenosis. C5-C6: Broad-based posterior disc bulge. Moderate canal stenosis, AP diameter 7 mm. Severe bilateral neuroforaminal stenosis. C6-C7: Broad-based posterior disc bulge. Moderate canal stenosis, AP diameter 8 mm. Severe bilateral neuroforaminal stenosis. C7-T1: Unremarkable. The spinal ligaments are intact, without evidence of disruption or abnormal signal intensity. The spinal cord is normal in signal intensity and there is no evidence of cord contusion. There is no evidence of an extradural, intradural, extramedullary or intramedullary lesion. Visualized soft tissues are normal. Visualized brain parenchyma is normal. IMPRESSION: 1. Multilevel degenerative disc disease with up to moderate to severe canal stenosis, AP diameter 6.5 mm, and severe bilateral neuroforaminal stenosis at multiple levels. 2. Multilevel degenerative changes of the spine likely representing Modic 1 degenerative changes. Osseous metastatic disease is considered less likely. ACT 112: Negative or not required by law. Electronically signed by: Esteban Gasca M.D. 06/26/2022 6:48 PM Chest MRI 06/26/22 12:13 MR chest wo/w con CLINICAL HISTORY: RUE weakness, numbness TECHNIQUE: Multisequence, multiplanar MR images of the chest were obtained without contrast COMPARISON: Comparison is made to CT chest 06/25/2022 FINDINGS: No evidence of acute fracture. No joint effusion is seen. No soft tissue abnormality is seen. The mediastinum, lung, and axilla are normal. Degenerative disc disease is partially visualized. IMPRESSION: No soft tissue abnormality is seen to explain right upper extremity numbness. No mass is seen in the region of the brachial plexus. ACT 112: Negative or not required by law. Electronically signed by: Esteban Gasca M.D. 06/26/2022 8:44 PM
[2022-06-27] MEDS: dexAMETHasone 8 MG in SYRINGE 0 ML IV SCH ×2 (15:30→21:26)
[2022-06-28 05:52] LABS: Hemoglobin 14.4 g/dl (12.0-16.0); Mean Corpuscular Hgb Conc 34.3 g/dL (32.0-36.0); Mean Corpuscular Volume 93.3 fL (80.0-100.0); Mean Platelet Volume 9.1 fL (9.4-12.3); Platelet Count 336 K/uL (130-400); RDW Coefficient of Variation 13.1 % (11.5-14.5); RDW Standard Deviation 44.8 fL (36.4-46.3)
[2022-06-28 06:18] LABS: BUN Creatinine Ratio 31.8 (10-20); Calcium 9.7 mg/dl (8.5-10.1); Creatinine Clr Calc Pharmacy 88.8 ml/min; Est GFR (African American) 123.6 ml/min; Est GFR (Non-African American) 106.7 ml/min; Potassium 4.6 mmol/L (3.5-5.1)
[2022-06-28] MEDS: dexAMETHasone 8 MG in SYRINGE 0 ML IV SCH (06:19)
[2022-06-28 06:33] LABS: Basophils # (auto) 0.02 K/uL (0-0.2); Basophils % (auto) 0.1 %; Immature Granulocytes # (auto) 0.07 K/uL (0.00-0.02); Immature Granulocytes % (auto) 0.5 %; Lymphocytes # (auto) 1.05 K/uL (1.2-3.4); Lymphocytes % (auto) 7.1 %; Monocytes # (auto) 0.29 K/uL (0.24-0.82); Neutrophils # (auto) 13.27 K/uL (1.4-6.5); Neutrophils % (auto) 90.3 %
[2022-06-28] MEDS: ASPIRIN 81 MG ECTAB PO SCH (07:44)
[2022-06-28] MEDS: ATORVASTATIN 40 MG TAB PO SCH (07:45)
[2022-06-28] MEDS: DOCUSATE SODIUM 100 MG CAP PO SCH (07:45)
[2022-06-28] MEDS: FLUoxetine HCL 20 MG CAP PO SCH (07:45)
--- NOTE | 2022-06-28 12:22 | Discharge Summary ---
Date of Service June 28, 2022 Admission HPI Per Admitting Provider Patient is a 46-year-old female with past medical history of factor V Leiden mutation on no anticoagulation, history of frontal stroke in the past on no antiplatelet, homeless and currently in state presented with brought to the hospital for right upper extremity weakness. According to the patient, it started yesterday morning. It was associated with decreased sensation. She is not able to move or lift her right arm from shoulder and below. She was not brought to the hospital yesterday. She continued to have the weakness and today was brought to the hospital to be evaluated for stroke. She also claims that she had a previous history of TIA/stroke which was associated with slurred speech. She has a diagnosis of factor V Leiden deficiency and has not been on any anticoagulation at least for the last 5 years. She claims that she is diagnosed with a Crohn's disease at the facility due to abdominal pain and is a started on some medication which she does not remember the name. She denies any blurred vision, slurred speech, nausea, vomiting, chest pain or shortness of breath, abdominal pain, other urinary or GI symptoms. She ambulates and walks with no difficulty. Admission Exam Per Admitting Provider Constitutional: WD/WN, vitals as above Eyes: PERRL, conjunctivae normal, anicteric sclerae ENMT: external ear and nose normal, oropharynx normal Neck: trachea midline, no thyromegaly Respiratory: normal respiratory effort, lungs clear to auscultation Cardiovascular: RRR, no murmur, no edema Gastrointestinal (Abdomen): normal bowel sounds, soft, nontender, no hepatosplenomegaly Musculoskeletal: Right upper extremity weakness Neurologic: Speech / Cognition: + abnormal speech Motor/Sensory: + abnormal movement (Patient has no significant movement of right upper extremity. Shoulder shr) and + sensory deficit (Decreased sensation of right upper extremity) Cranial Nerves: sense of smell intact, PERRL, EOM intact bilaterally, normal hearing and able to rotate head bilaterally Psychiatric: Patient is withdrawn Principal Diagnosis Right arm weakness secondary to Cervical Radiculopathy Discharge Exam Constitutional: WD/WN, vitals as above, NAD, sitting up in bed, pleasant, conversing easily Respiratory: normal respiratory effort, lungs clear to auscultation, no wheeze, rales, rhonchi. Normal insp/exp effort, no accessory muscle use Cardiovascular: RRR, no murmur, no edema Vessels: no JVD or carotid bruit Chest: normal inspection of chest Abdomen: normal bowel sounds, soft, nontender, no hepatosplenomegaly Musculoskeletal: no cyanosis or clubbing, extremities motor strength 5/5 Skin: no rashes, warm and dry normal turgor Neurologic: Cranial nerve II to XII intact Weakness noted in right biceps, triceps, brachioradialis along with handgrip. Able to move 4th and 5th digits. Sensation intact No other focal deficit. Lymphatic: no cervical or axillary lymphadenopathy : deferred Discharge Data Allergies Allergy/AdvReac Type Severity Reaction Status Date / Time No Known Allergies Allergy Verified 06/24/22 15:55 Consultations 06/24/22 13:36 ED Decision to Admit Stat 06/24/22 16:51 Consult Neurology Routine 06/27/22 08:06 Consult Orthopedic Surgery Routine Ordered Studies 06/24/22 09:55 CT head/brain wo con Stat 06/24/22 11:35 CT angio head w con Stat CT angio neck with con Stat 06/24/22 13:36 MR brain wo con Stat 06/25/22 12:19 CT chest diagnostic wo con Routine 06/26/22 10:30 MR cervical spine wo/w con Routine 06/26/22 12:13 MRI chest [MR chest wo/w con] Routine Hospital Course (1) Right arm weakness: (2) Factor V deficiency: (3) Tobacco abuse: (4) Lung nodule: Plan Patient is a 46-year-old female with past medical history of factor V Leiden mutation on no anticoagulation, history of frontal stroke in the past , homeless and currently in state presented with brought to the hospital for right upper extremity weakness.Patient underwent stroke work-up with CT head, CT angio head and neck after presentation to the ED. CT head showed encephalomalacia in the right frontal lobe with no acute intracranial abnormality. CT angio showed 70% stenosis of the V2 segment of left vertebral artery. Brain MRI was negative for acute stroke. Neurology was consulted; recommended aspirin and Lipitor. She was also recommended to undergo cervical spine MRI. Cervical spine MRI showed Multilevel degenerative disc disease with moderate to severe canal stenosis, AP diameter 6.5 mm, and severe bilateral neuroforaminal stenosis at multiple levels. Orthospine was consulted. Patient was deemed to have very high risks for surgical intervention at the time and less likely to have any benefit. She was recommended steroid course with continued PT OT. Patient was then started on dexamethasone 8 mg every 8 hours. On the day of the discharge, patient reported improvement in strength of her fingers. She was still not able to move her arm against the gravity. Patient was discharged on tapering dose of prednisone. Discussion was done with medical staff at [facility] facility with the instructions. Paper scripts were provided. Patient will need outpatient EMG and nerve conduction study and correction facility will arrange for it. Patient was also informed regarding CT chest which showed multiple lung nodules up to 8 mm. She was recommended to undergo follow-up CT scan as outpatient. Hypercoagulable work-up was also sent during the hospitalization; Results were pending at the time of the discharge. Patient was asked to follow- up with her primary care doctor regarding the results. Patient was agreeable with the plan outlined and verbalized understanding. Total Time Total Time Spent Total Time Spent (In Minutes): 35 Total Time Includes: Examination of the Patient, Discharge Planning, Medication Reconciliation, Communication With Other Providers and Other Discharge Plan Discharge Items Patient Disposition: [facility] Reason For Visit: CEREBROVASCULAR ACCIDENT Discharge Diagnosis: Cervical radiculopathy Activity: Resume your previous activity Non-emergency contact: Primary Care Provider Call non-emergency contact if: you have any medication questions and your symptoms worsen Follow-up/Referrals: [facility] [Primary Care Provider] - Diet: Regular Addtl Attending Provider Instructions: You were admitted to the hospital with right arm weakness. MRI brain did not show any stroke. MRI of the cervical spine showed " Multilevel degenerative disc disease with up to moderate to severe canal stenosis, AP diameter 6.5 mm, and severe bilateral neuroforaminal stenosis at multiple levels." You are started on prednisone taper as per recommendation by ortho-spine and neurology. Please take it as instructed below: 1) Take prednisone 60 mg (6 tablets of 10mg) once daily for 3 days 2) Then, prednisone 40 mg (4 tablets of 10mg) once daily for 3 days 3) Then, prednisone 20 mg (2 tablets of 10mg) once daily for 3 days 4) Then, prednisone 10 mg (1 tablet of 10mg) once daily for 3 days, Then STOP. Total duration of treatment is 12 days. You will need to follow-up with neurology as outpatient to have outpatient EMG and nerve conduction study. You are also started on Lipitor 40 mg once daily. Hypercoagulable work-up was sent during your hospitalization. You need to follow-up with the primary care doctor for the results. You may need to be on long-term anticoagulation if the lab work-up confirms hypercoagulable state. The CT chest on admission showed few scattered subcentimeter pulmonary nodules. It will require follow-up image with CT scan Chest. Please discuss this finding with her primary care doctor. Pending Studies at Discharge: No Stand-Alone Forms: My [facility] [employer] Skilled Items Patient informed of condition?: No Discharge Level of Care: Other Communicable Disease: No Discharge Prognosis: Stable Lines: None Urinary Catheter: No Medications and DC Order Prescriptions: New atorvastatin 40 mg Tablet 40 mg PO QAM Qty: 30 0RF prednisone 10 mg tablet See Taper PO DAILY Qty: 39 0RF Taper: Taper, Blank 60 mg DAILY for 3 Days 40 mg DAILY for 3 Days 20 mg DAILY for 3 Days 10 mg DAILY for 3 Days Continued albuterol sulfate 2.5 mg /3 mL (0.083 %) Solution For Nebulization 2.5 mg INHALATION TID PRN (Reason: Shortness Of Breath) hydroxyzine HCl 50 mg Tablet 50 mg PO HS PRN (Reason: RESTLESSNESS/SLEEP) aspirin 81 mg Tablet,Delayed Release (Dr/Ec) 81 mg PO DAILY fluoxetine 20 mg Tablet 20 mg PO DAILY docusate sodium [Colace] 100 mg Capsule 100 mg PO BID Excedrin Migraine 250-250-65 mg Tablet 1 tab PO DAILY PRN (Reason: Migraine Headache) Discharge Orders: Discharge Order (Routine); Ordered 06/28/22 Ordered By: Joaquim Romo Admission Data Admit Date/Time: 06/24/22 14:56 Attending Provider: Joaquim Romo Admit Provider: Caitlyn Gutiérrez Primary Care Provider: [facility] Other Providers: Caitlyn Gutiérrez ; Shyam Snow ; Mc Hamilton Other Interventions: Discharge Summary Assessment (RN) Last Done: 06/28/22 12:19
[2022-07-03 05:56] LABS: B2 Glycoprotein IgG <2.0 U/mL (<20.0); B2 Glycoprotein IgM 5.1 U/mL (<20.0); Protein S Functional(Activity) 100 % normal (60-140)
[2022-07-04 01:26] LABS: Anti Cardiolipin Ab IgG <2.0 GPL-U/mL; Anti Cardiolipin Ab IgM 16.8 MPL-U/mL; Anti-Thrombin III Activity 140 % normal (80-135); PTT LA Screen 36 sec (<=40)
[2022-07-05 20:26] LABS: Factor 5 Mutation NEGATIVE
== END 2022-06-28 13:23 | DRG 74 ==
LOC: ED 09:49 → SUATTDRO 14:56 → INTOOBSV 14:56 → 2W 14:56